=== PATIENT | female | born 1965 | race Caucasian/White ===

== ENCOUNTER 2019-08-01 11:36 | Inpatient (IN) | payer OTHER ==
--- NOTE | 2019-08-01 12:14 | ED ---
General Adult HPI - General Chief complaint: Neuro Symptoms/Deficit Stated complaint: med reaction Time Seen by Provider: 08/01/19 12:06 Source: patient, family, RN notes reviewed, old records reviewed Mode of arrival: wheelchair Limitations: no limitations - History of Present Illness Initial comments: 54-year-old female presenting for evaluation of jerky movements over the past 3 or 4 days. Patient thought this may been a medication reaction although she denies taking any new medications over the past several weeks. She is on [place], morphine, Lyrica for chronic pain issues. She denies any focal numbness or weakness. She denies fever in the past one week. She denies any chest pain or dyspnea. Denies abdominal pain. No vomiting or diarrhea. She states that she did have an episode of renal failure where she was treated on an outside hos pital. She states she's had normal urine output over the past several days. No dysuria or hematuria. - Related Data Home Medications Medication Instructions Recorded Confirmed Albuterol Inhaler [Ventolin Hfa 2 puff INHALATION RT-QID PRN 08/01/19 08/01/19 Inhaler] Aspirin EC [Ecotrin Low Dose] 81 mg PO DAILY 08/01/19 08/01/19 Atorvastatin [Lipitor] 80 mg PO HS 08/01/19 08/01/19 Baclofen [Lioresal] 10 mg PO DAILY 08/01/19 08/01/19 Carvedilol [Coreg] 12.5 mg PO BID 08/01/19 08/01/19 DULoxetine HCL [Cymbalta] 60 mg PO DAILY 08/01/19 08/01/19 Fluticasone Propion/Salmeterol 1 puff INHALATION RT-BID 08/01/19 08/01/19 [[place] 250-50 Inhub] HYDROcodone/APAP 10-325MG [[place] 1 tab PO TID PRN 08/01/19 08/01/19 10-325] Lisinopril-Hctz 20-12.5 mg 1 tab PO DAILY 08/01/19 08/01/19 [Zestoretic 20-12.5] Morphine Sulfate [Ms Contin] 30 mg PO Q12H 08/01/19 08/01/19 Pregabalin [Lyrica] 200 mg PO TID 08/01/19 08/01/19 Allergies Allergy/AdvReac Type Severity Reaction Status Date / Time UNKNOWN BLOOD PRESSURE AdvReac KIDNEYS Uncoded 08/01/19 13:00 MEDICATION SHUT DOWN Review of Systems ROS Statement: Those systems with pertinent positive or pertinent negative responses have been documented in the HPI. ROS Other: All systems not noted in ROS Statement are negative. Past Medical History Past Medical History: Cancer, Hyperlipidemia, Hypertension, Thyroid Disorder Additional Past Medical History / Comment(s): chronic back pain, skin CA History of Any Multi-Drug Resistant Organisms: None Reported Past Surgical History: Orthopedic Surgery Past Psychological History: Anxiety, Depression Smoking Status: Current every day smoker Past Alcohol Use History: None Reported Past Drug Use History: None Reported General Exam Limitations: no limitations General appearance: alert, in no apparent distress Head exam: Present: atraumatic, normocephalic Eye exam: Present: normal appearance, PERRL ENT exam: Present: normal exam Neck exam: Present: normal inspection. Absent: tenderness, meningismus Respiratory exam: Present: normal lung sounds bilaterally. Absent: respiratory distress, wheezes Cardiovascular Exam: Present: regular rate, normal rhythm GI/Abdominal exam: Present: soft. Absent: distended, tenderness, guarding Extremities exam: Present: normal inspection, normal capillary refill. Absent: pedal edema, calf tenderness Neurological exam: Present: alert, oriented X3, CN II-XII intact, motor sensory deficit (No focal neurological deficit, subtle jerking movements of the head and upper extremities.) Psychiatric exam: Present: anxious Skin exam: Present: warm, dry, intact. Absent: cyanosis, diaphoretic Course Vital Signs 08/01/19 08/01/19 11:37 13:43 Temperature 98.3 F Pulse Rate 74 71 Respiratory 18 18 Rate Blood Pressure 113/67 92/59 O2 Sat by Pulse 97 100 Oximetry - Reevaluation(s) Reevaluation #1: 08/01/19 [id number] Discussed case with covering stroke neurologist Dr. Perez, who recommends MRI with and without contrast, suspect possible brain mass versus CVA with focal seizure. He recommends aspirin and Keppra. He's had history of emergency department. The patient cannot be transferred at this time due to coronavirus pandemic. I discussed case with the admitting physician Dr. Ochoa who will accept this admission for MRI, and neurology evaluation on Saturday which is 2 days from now. Patient will be closely monitored in the meantime. I did attempt to obtain medical records the patient's implanted device prohibiting MRI in the emergency department. Attempting to find out from her family where this device was implanted some medical records can be obtained prior to MRI imaging. MRI was recommended both by stroke neurologist in the radiologist this was initially ordered however cancel awaiting implanted device details. EKG Findings - EKG Comments: EKG Findings:: EKG: normal sinus rhythm, low voltage, nonspecific T-wave abnormality in the precordial leads, rate of 75, MD interval 138, QRS duration 86, QTC 455 Medical Decision Making - Medical Decision Making 54-year-old female with generalized twitching, there does not appear to be in the lateral symptoms associated with this. Head CT shows sulci effacement on the right with no midline shift. No intracranial hemorrhage. I did attempt to order MRI however this was not able to be obtained secondary to implantable device in the patient. I discussed case with the radiologist, stroke neurologist in the admitting physician. Plan at this point will be to attempt to obtain information regarding her implanted device and obtain MRI both with and without contrast. Patient will be closely monitored on seizure precautions. She will be loaded with Keppra and given aspirin emergency department. Admitted to internal medicine at this time. - Lab Data Result diagrams: 08/01/19 12:00 08/01/19 12:00 Lab Results 08/01/19 08/01/19 08/01/19 Range/Units 12:00 12:00 12:00 WBC 10.2 (3.8-10.6) k/uL RBC 4.37 (3.80-5.40) m/uL Hgb 12.8 (11.4-16.0) gm/dL Hct 38.0 (34.0-46.0) % MCV 86.9 (80.0-100.0) fL MCH 29.3 (25.0-35.0) pg MCHC 33.7 (31.0-37.0) g/dL RDW 13.5 (11.5-15.5) % Plt Count 279 (150-450) k/uL Neutrophils % 80 % Lymphocytes % 11 % Monocytes % 5 % Eosinophils % 3 % Basophils % 0 % Neutrophils # 8.1 H (1.3-7.7) k/uL Lymphocytes # 1.1 (1.0-4.8) k/uL Monocytes # 0.5 (0-1.0) k/uL Eosinophils # 0.3 (0-0.7) k/uL Basophils # 0.0 (0-0.2) k/uL PT 9.8 (9.0-12.0) sec INR 0.9 (<1.2) APTT 25.7 (22.0-30.0) sec Sodium 135 L (137-145) mmol/L Potassium 5.1 (3.5-5.1) mmol/L Chloride 100 (98-107) mmol/L Carbon Dioxide 27 (22-30) mmol/L Anion Gap 8 mmol/L BUN 45 H (7-17) mg/dL Creatinine 1.83 H (0.52-1.04) mg/dL Est GFR (CKD-EPI)AfAm 36 (>60 ml/min/1.73 sqM) Est GFR (CKD-EPI)NonAf 31 (>60 ml/min/1.73 sqM) Glucose 121 H (74-99) mg/dL Plasma Lactic Acid [place] (0.7-2.0) mmol/L Calcium 9.1 (8.4-10.2) mg/dL Total Bilirubin 0.4 (0.2-1.3) mg/dL AST 65 H (14-36) U/L ALT 41 H (4-34) U/L Alkaline Phosphatase 98 (38-126) U/L Total Protein 7.1 (6.3-8.2) g/dL Albumin 4.3 (3.5-5.0) g/dL Urine Color Urine Appearance (Clear) Urine pH (5.0-8.0) Ur Specific [place] (1.001-1.035) Urine Protein (Negative) Urine Glucose (UA) (Negative) Urine Ketones (Negative) Urine Blood (Negative) Urine Nitrite (Negative) Urine Bilirubin (Negative) Urine Urobilinogen (<2.0) mg/dL Ur Leukocyte Esterase (Negative) Urine RBC (0-5) /hpf Urine WBC (0-5) /hpf Ur Squamous Epith Cells (0-4) /hpf Urine Bacteria (None) /hpf Hyaline Casts (0-2) /lpf Urine Mucus (None) /hpf Salicylates <1.0 mg/dL Urine Opiates Screen (NotDetected) Ur Oxycodone Screen (NotDetected) Urine Methadone Screen (NotDetected) Ur Propoxyphene Screen (NotDetected) Acetaminophen 10.6 ug/mL Ur Barbiturates Screen (NotDetected) U Tricyclic Antidepress (NotDetected) Ur Phencyclidine Scrn (NotDetected) Ur Amphetamines Screen (NotDetected) U Methamphetamines Scrn (NotDetected) U Benzodiazepines Scrn (NotDetected) Urine Cocaine Screen (NotDetected) U Marijuana (THC) Screen (NotDetected) Serum Alcohol <10 mg/dL 08/01/19 08/01/19 Range/Units 12:00 12:00 WBC (3.8-10.6) k/uL RBC (3.80-5.40) m/uL Hgb (11.4-16.0) gm/dL Hct (34.0-46.0) % MCV (80.0-100.0) fL MCH (25.0-35.0) pg MCHC (31.0-37.0) g/dL RDW (11.5-15.5) % Plt Count (150-450) k/uL Neutrophils % % Lymphocytes % % Monocytes % % Eosinophils % % Basophils % % Neutrophils # (1.3-7.7) k/uL Lymphocytes # (1.0-4.8) k/uL Monocytes # (0-1.0) k/uL Eosinophils # (0-0.7) k/uL Basophils # (0-0.2) k/uL PT (9.0-12.0) sec INR (<1.2) APTT (22.0-30.0) sec Sodium (137-145) mmol/L Potassium (3.5-5.1) mmol/L Chloride (98-107) mmol/L Carbon Dioxide (22-30) mmol/L Anion Gap mmol/L BUN (7-17) mg/dL Creatinine (0.52-1.04) mg/dL Est GFR (CKD-EPI)AfAm (>60 ml/min/1.73 sqM) Est GFR (CKD-EPI)NonAf (>60 ml/min/1.73 sqM) Glucose (74-99) mg/dL Plasma Lactic Acid [place] 0.6 L (0.7-2.0) mmol/L Calcium (8.4-10.2) mg/dL Total Bilirubin (0.2-1.3) mg/dL AST (14-36) U/L ALT (4-34) U/L Alkaline Phosphatase (38-126) U/L Total Protein (6.3-8.2) g/dL Albumin (3.5-5.0) g/dL Urine Color Light Yellow Urine Appearance Clear (Clear) Urine pH 5.0 (5.0-8.0) Ur Specific [place] 1.008 (1.001-1.035) Urine Protein Negative (Negative) Urine Glucose (UA) Negative (Negative) Urine Ketones Negative (Negative) Urine Blood Trace H (Negative) Urine Nitrite Negative (Negative) Urine Bilirubin Negative (Negative) Urine Urobilinogen <2.0 (<2.0) mg/dL Ur Leukocyte Esterase Large H (Negative) Urine RBC 3 (0-5) /hpf Urine WBC 15 H (0-5) /hpf Ur Squamous Epith Cells 3 (0-4) /hpf Urine Bacteria Rare H (None) /hpf Hyaline Casts 4 H (0-2) /lpf Urine Mucus Rare H (None) /hpf Salicylates mg/dL Urine Opiates Screen Detected H (NotDetected) Ur Oxycodone Screen Not Detected (NotDetected) Urine Methadone Screen Not Detected (NotDetected) Ur Propoxyphene Screen Not Detected (NotDetected) Acetaminophen ug/mL Ur Barbiturates Screen Not Detected (NotDetected) U Tricyclic Antidepress Not Detected (NotDetected) Ur Phencyclidine Scrn Not Detected (NotDetected) Ur Amphetamines Screen Not Detected (NotDetected) U Methamphetamines Scrn Not Detected (NotDetected) U Benzodiazepines Scrn Not Detected (NotDetected) Urine Cocaine Screen Not Detected (NotDetected) U Marijuana (THC) Screen Not Detected (NotDetected) Serum Alcohol mg/dL Disposition Clinical Impression: Intracranial swelling, New onset seizure Disposition: ADMITTED IP TO THIS [facility] Condition: Stable Is patient prescribed a controlled substance at d/c from ED?: No Referrals: Nonstaff,Physician [Primary Care Provider] - 1-2 days Decision to Admit Reason: Admit from EC Decision Date: 08/01/19 Decision Time: 13:20
[2019-08-01 12:59] LABS: ALT 41 U/L (4-34); AST 65 U/L (14-36); Acetaminophen 10.6 ug/mL; African American GFR (CKD) 36 (>60 ml/min/1.73 sqM); Albumin 4.3 g/dL (3.5-5.0); Alcohol <10 mg/dL; Alkaline Phosphatase 98 U/L (38-126); Anion Gap 8 mmol/L; Blood Urea Nitrogen 45 mg/dL (7-17); Calcium 9.1 mg/dL (8.4-10.2); Carbon Dioxide 27 mmol/L (22-30); Chloride 100 mmol/L (98-107); Glucose 121 mg/dL (74-99); Non-African American GFR(CKD) 31 (>60 ml/min/1.73 sqM); Potassium 5.1 mmol/L (3.5-5.1); Salicylate <1.0 mg/dL; Sodium 135 mmol/L (137-145); Total Bilirubin 0.4 mg/dL (0.2-1.3); Total Protein 7.1 g/dL (6.3-8.2)
[2019-08-01 13:00] LABS: Appearance,Urine Clear (Clear); Bacteria,Urine Rare /hpf; Bilirubin,Urine Negative (Negative); Blood,Urine Trace (Negative); Color,Urine Light Yellow; Glucose,Urine (UA) Negative (Negative); Hyaline Casts,Urine 4 /lpf (0-2); Ketones,Urine Negative (Negative); Leukocyte Esterase,Urine Large (Negative); Mucus,Urine Rare /hpf; Nitrite,Urine Negative (Negative); Protein,Urine Negative (Negative); RBC,Urine 3 /hpf (0-5); Specific Gravity,Urine 1.008 (1.001-1.035); Squamous Epithelial Cell,Urine 3 /hpf (0-4); Urobilinogen,Urine <2.0 mg/dL (<2.0); WBC,Urine 15 /hpf (0-5)
--- NOTE | 2019-08-01 13:00 | CT ---
EXAMINATION TYPE: CT brain wo con DATE OF EXAM: 08/01/2019 COMPARISON: NONE HISTORY: altered mental status, head injury CT DLP: 1054.4 mGycm Automated exposure control for dose reduction was used. FINDINGS: There is diffuse sulcal effacement on the right suggesting some degree of brain swelling. No definite focal lesion or midline shift is seen. I do not see evidence of intracranial blood. IMPRESSION: DIFFUSE RIGHT-SIDED SULCAL EFFACEMENT SUGGESTING SOME DEGREE OF BRAIN SWELLING. UNCERTAIN TO THE E TIOLOGY OF THIS. I SPOKE TO DR. ULLOA IN THE ER AT THE TIME OF REPORTING AND SUGGESTED IF POSSIBL E TO GET AN MR OF THE BRAIN FOR FURTHER ASSESSMENT.
[2019-08-01 13:06] LABS: INR 0.9 (<1.2); Partial Thromboplastin Time 25.7 sec (22.0-30.0); Prothrombin Time 9.8 sec (9.0-12.0)
[2019-08-01 13:10] LABS: Basophils % (A) 0 %; Eosinophils # (A) 0.3 k/uL (0-0.7); Eosinophils % (A) 3 %; HGB 12.8 gm/dL (11.4-16.0); Lymphocytes # (A) 1.1 k/uL (1.0-4.8); Lymphocytes % (A) 11 %; MCH 29.3 pg (25.0-35.0); MCHC 33.7 g/dL (31.0-37.0); MCV 86.9 fL (80.0-100.0); Monocytes # (A) 0.5 k/uL (0-1.0); Monocytes % (A) 5 %; Neutrophils # (A) 8.1 k/uL (1.3-7.7); Neutrophils % (A) 80 %; Platelet Count 279 k/uL (150-450); RBC 4.37 m/uL (3.80-5.40); RDW 13.5 % (11.5-15.5); WBC 10.2 k/uL (3.8-10.6)
[2019-08-01 13:15] LABS: Amphetamine Screen,Urine Not Detected (NotDetected); Benzodiazepines Screen,Urine Not Detected (NotDetected); Cocaine Screen,Urine Not Detected (NotDetected); Opiate Screen,Urine Detected (NotDetected); Phencyclidine Screen,Urine Not Detected (NotDetected); Urn Cannabinoid Scrn Not Detected (NotDetected)
[2019-08-01 13:16] LABS: Barbiturate Screen,Urine Not Detected (NotDetected); Methadone Screen, Urine Not Detected (NotDetected); Oxycodone Screen, Urine Not Detected (NotDetected); Tricyclic Antidepressant,Urine Not Detected (NotDetected)
[2019-08-01] MEDS ORDERED: SODIUM CHLORIDE 0.9% 500 ML 500 ML IV ONE (13:21)
[2019-08-01] MEDS: SODIUM CHLORIDE 0.9% 1,000 ML IV SCH ×2 (13:26→23:26)
[2019-08-01] MEDS ORDERED: ASPIRIN 325 MG TAB PO STA (14:08)
[2019-08-01] MEDS ORDERED: levETIRAcetam IV 1,000 MG in SALINE 1 100ML.BAG IVPB STA (14:08)
[2019-08-01] MEDS: NALOXONE 0.4 MG/ML 1 ML VIAL IV PRN ×3 (15:21→16:34)
[2019-08-01 17:16] LABS: VBG PH 7.24 (7.31-7.41)
[2019-08-01] MEDS: NALOXONE 2 MG in SODIUM CHLORIDE 0.9% 250 ML IV SCH ×2 (18:22→21:15)
--- NOTE | 2019-08-01 18:27 | XR ---
EXAMINATION TYPE: XR chest 1V portable DATE OF EXAM: 08/01/2019 COMPARISON: NONE HISTORY: Chest pain TECHNIQUE: Single view FINDINGS: There is minimal atelectasis at the lung bases. There is poor inspiration. There is no hear t failure. Costophrenic angles are fairly clear. There is neural stimulator in the lower thoracic spi ne. There are chest leads. IMPRESSION: Mild atelectasis at the lung bases. No heart failure.
[2019-08-01 19:55] LABS: Glucose,Whole Blood 100 mg/dL (75-99)
[2019-08-01] MEDS ORDERED: IPRATROPIUM-ALBUTEROL 3 ML NEB INHALATION PRN (20:02)
[2019-08-01] MEDS ORDERED: ACETAMINOPHEN TAB 325 MG TAB PO PRN (20:02)
[2019-08-01] MEDS ORDERED: NALOXONE 0.4 MG/ML 1 ML VIAL IV PRN (20:06)
[2019-08-01] MEDS ORDERED: ASPIRIN 300 MG SUPP RECTAL SCH (20:15)
--- NOTE | 2019-08-01 20:25 | P.HPIM ---
History of Present Illness H&P Date: 08/01/19 Chief Complaint: "jerky movement" 54 yo female with multiple comorbidites, presents to the ED complaining of "jerking movements" for the last few days. She has no Hx of seizures, she was concerned that this may have been a reaction to her meds, even though there has been no recent changes. She is on [place], Morphine, Baclofen, Lyrica, and possibly a morphine pump. She was awake and alert in the ED but quickly became unresponsive. responded to two doses of Narcan and was placed on a drip. [place] pH 7.24 PCO2 67, placed on Bipap. currently lethargic, difficult to arouse, answers simple questions with yes/no then falls back asleep. CT shows diffuse right sided sulcal effacement with unclear etiology. Neuro ws consulted, started on Keppra, MRI ordered but patient has a pump and unknown if safe for MRI, cannot be transferred at this time due to the COVID pandemic. SBP dropped to the 80's systolic but improved with IVF. Patient was transferred to ICU in stable condition. Review of Systems ROS unobtainable: due to mental status Past Medical History Past Medical History: Cancer, Hyperlipidemia, Hypertension, Thyroid Disorder Additional Past Medical History / Comment(s): chronic back pain, skin CA, CRF, MARYELL[place] History of Any Multi-Drug Resistant Organisms: None Reported Past Surgical History: Orthopedic Surgery Past Psychological History: Anxiety, Depression Smoking Status: Current every day smoker Past Alcohol Use History: None Reported Past Drug Use History: None Reported Medications and Allergies Home Medications Medication Instructions Recorded Confirmed Type Albuterol Inhaler [Ventolin Hfa 2 puff INHALATION RT-QID PRN 08/01/19 08/01/19 History Inhaler] Aspirin EC [Ecotrin Low Dose] 81 mg PO DAILY 08/01/19 08/01/19 History Atorvastatin [Lipitor] 80 mg PO HS 08/01/19 08/01/19 History Baclofen [Lioresal] 10 mg PO DAILY 08/01/19 08/01/19 History Carvedilol [Coreg] 12.5 mg PO BID 08/01/19 08/01/19 History DULoxetine HCL [Cymbalta] 60 mg PO DAILY 08/01/19 08/01/19 History Fluticasone Propion/Salmeterol 1 puff INHALATION RT-BID 08/01/19 08/01/19 History [[place] 250-50 Inhub] HYDROcodone/APAP 10-325MG [[place] 1 tab PO TID PRN 08/01/19 08/01/19 History 10-325] Lisinopril-Hctz 20-12.5 mg 1 tab PO DAILY 08/01/19 08/01/19 History [Zestoretic 20-12.5] Morphine Sulfate [Ms Contin] 30 mg PO Q12H 08/01/19 08/01/19 History Pregabalin [Lyrica] 200 mg PO TID 08/01/19 08/01/19 History Allergies Allergy/AdvReac Type Severity Reaction Status Date / Time UNKNOWN BLOOD PRESSURE AdvReac KIDNEYS Uncoded 08/01/19 13:00 MEDICATION SHUT DOWN Physical Exam Osteopathic Statement: *. No significant issues noted on an osteopathic structural exam other than those noted in the History and Physical/Consult. Vitals: Vital Signs Temp Pulse Resp BP Pulse Ox 08/01/19 19:04 67 12 93/48 100 08/01/19 18:50 97.7 F 64 12 101/59 100 08/01/19 18:30 69 12 111/63 08/01/19 18:22 12 08/01/19 18:20 65 12 111/63 100 08/01/19 18:15 80 12 113/62 100 08/01/19 18:10 69 12 113/62 100 08/01/19 18:00 61 7 L 85/48 100 08/01/19 17:59 64 85/40 100 08/01/19 17:43 63 18 98/60 100 08/01/19 17:30 62 12 110/57 98 08/01/19 17:15 72 11 L 137/75 98 08/01/19 17:07 144/80 100 08/01/19 17:00 87 12 148/67 98 08/01/19 16:34 12 08/01/19 16:30 76 12 92/69 98 08/01/19 16:15 78 12 117/74 98 08/01/19 16:06 97.7 F 85 12 102/53 100 08/01/19 16:00 103 H 14 127/71 98 08/01/19 15:58 99 15 127/71 98 08/01/19 15:45 75 12 117/71 98 08/01/19 15:37 96 18 117/71 98 08/01/19 15:35 99/62 98 08/01/19 15:32 60 10 L 73/42 98 08/01/19 15:30 53 L 8 L 50/23 99 08/01/19 15:22 8 L 08/01/19 15:21 10 L 08/01/19 15:15 53 L 8 L 81/37 98 08/01/19 15:00 56 L 12 124/95 98 08/01/19 14:45 60 13 124/95 97 08/01/19 14:30 73 12 95/41 98 08/01/19 14:00 72 13 92/59 97 08/01/19 11:37 98.3 F 74 18 113/67 97 Intake and Output 08/01/19 08/01/19 08/01/19 06:59 14:59 22:59 Other: Weight 83.915 kg - Constitutional General appearance: no cooperative, no no acute distress, obese - EENT Eyes: abnormal pupil, anicteric sclerae - Neck Neck: no lymphadenopathy, normal ROM, no rigidity - Respiratory Respiratory: bilateral: CTA - Cardiovascular Rhythm: regular Heart sounds: normal: S1, S2 Abnormal Heart Sounds: no systolic murmur, no diastolic murmur - Gastrointestinal General gastrointestinal: normal bowel sounds, no tenderness - Neurologic no facial asymmetry difficult to arouse, answers yes/no then falls back asleep moves all ext when awake no abnormal movements, no tremor, no seizure activity - Psychiatric Psychiatric: no A&O x's 3, no appropriate affect Results CBC & Chem 7: 08/01/19 12:00 08/01/19 12:00 Labs: Abnormal Lab Results - Last 24 Hours (Table) 08/01/19 08/01/19 08/01/19 Range/Units 12:00 12:00 12:00 Neutrophils # 8.1 H (1.3-7.7) k/uL VBG pH (7.31-7.41) VBG pCO2 (37-51) mmHg Sodium 135 L (137-145) mmol/L BUN 45 H (7-17) mg/dL Creatinine 1.83 H (0.52-1.04) mg/dL Glucose 121 H (74-99) mg/dL POC Glucose (mg/dL) (75-99) mg/dL Plasma Lactic Acid [place] 0.6 L (0.7-2.0) mmol/L AST 65 H (14-36) U/L ALT 41 H (4-34) U/L Urine Blood (Negative) Ur Leukocyte Esterase (Negative) Urine WBC (0-5) /hpf Urine Bacteria (None) /hpf Hyaline Casts (0-2) /lpf Urine Mucus (None) /hpf Urine Opiates Screen (NotDetected) 08/01/19 08/01/19 08/01/19 Range/Units 12:00 16:51 19:54 Neutrophils # (1.3-7.7) k/uL VBG pH 7.24 L (7.31-7.41) VBG pCO2 67 H (37-51) mmHg Sodium (137-145) mmol/L BUN (7-17) mg/dL Creatinine (0.52-1.04) mg/dL Glucose (74-99) mg/dL POC Glucose (mg/dL) 100 H (75-99) mg/dL Plasma Lactic Acid [place] (0.7-2.0) mmol/L AST (14-36) U/L ALT (4-34) U/L Urine Blood Trace H (Negative) Ur Leukocyte Esterase Large H (Negative) Urine WBC 15 H (0-5) /hpf Urine Bacteria Rare H (None) /hpf Hyaline Casts 4 H (0-2) /lpf Urine Mucus Rare H (None) /hpf Urine Opiates Screen Detected H (NotDetected) Assessment and Plan Plan: # Acute Hypercapnic Respiratory Failure -secondary to narcotic overdose -continue Narcan drip -continue Bipap, repeat VBG in 1 hour -hold all narcotics -admit to ICU # Acute Metabolic Encephalopathy -multi factorial: CO2 narcosis, multiple psychotropic medications/polypharmacy -continue Bipap, hold all narcotics/baclofen/benzos -possible UTI, treat empirically with Ceftriaxone -CT shows diffuse effacement of Sulci, possible due to edema. Etiology unclear. Appreciate further input from neurology. may need LP -MRI pending # Hypotension -possibly due to narcotic/polypharmacy -improving to IVF -antihypertensives on hold # TESFAYE vs CKD -Cr 1.83, baseline unknown -avoid nephrotoxins # DVT PPX
[2019-08-01 20:49] LABS: ABG Base Excess -1.7 mmol/L; ABG HCO3 25 mmol/L (21-25); ABG Oxygen Saturation 99.4 % (94-97); ABG PCO2 50 mmHg (35-45); ABG PO2 246 mmHg (83-108); ABG TCO2 26 mmol/L (19-24); Allen Test Performed? Yes
[2019-08-01] MEDS: LACTATED RINGERS 1,000 ML IV SCH (20:50)
[2019-08-01] MEDS: INSULIN ASPART (NovoLOG) 100 UNIT/ML VIAL SQ SCH (20:55)
[2019-08-01 20:56] LABS: Glucose,Whole Blood 117 mg/dL (75-99)
[2019-08-01] MEDS: PANTOPRAZOLE 40 MG/10 ML VIAL IVP SCH (21:00)
[2019-08-01] MEDS: DEXAMETHASONE SOD PHOSPHATE 4 MG/ML 1 ML VIAL IV SCH (21:01)
[2019-08-01] MEDS: ATORVASTATIN 80 MG TAB PO SCH (21:04)
--- NOTE | 2019-08-01 21:44 | US ---
EXAMINATION TYPE: US carotid duplex BILAT DATE OF EXAM: 08/01/2019 COMPARISON: NONE CLINICAL HISTORY: r/o CVA. EXAM MEASUREMENTS: RIGHT: Peak Systolic Velocity (PSV) cm/sec ----- Right CCA: 118.3 ----- Right ICA: 97.3 ----- Right ECA: 87.1 ICA/CCA ratio: 0.8 RIGHT: End Diastole cm/sec ----- Right CCA: 46.2 ----- Right ICA: 46.2 ----- Right ECA: 12.8 LEFT: Peak Systolic Velocity (PSV) cm/sec ----- Left CCA: 125.8 ----- Left ICA: 106.6 ----- Left ECA: 109.0 ICA/CCA ratio: 0.8 LEFT: End Diastole cm/sec ----- Left CCA: 51.5 ----- Left ICA: 53.2 ----- Left ECA: 16.0 VERTEBRALS (direction of flow): Right Vertebral: Antegrade Left Vertebral: Antegrade Rhythm: Normal No significant stenosis seen IMPRESSION: There is antegrade flow in the vertebral arteries. The images and measurements suggest close to 0% st enosis in both internal carotid arteries. Criteria for Assigning % of Stenosis / Diameter reduction (Estimation based on the indirect measurements of the internal carotid artery velocities (ICA PSV). 1. Normal (no stenosis)=ICA PSV < 125 cm/s: ratio < 2.0: ICA EDV<40 cm/s. 2. Less than 50% stenosis=ICA PSV < 125 cm/s: ratio < 2.0: ICA EDV<40 cm/s. 3. 50 to 69% stenosis=ICA PSV of 125 to 230 cm/s: ration 2.0 ? 4.0: ICA EDV 40-100 cm/s. 4. Greater than 70% stenosis to near occlusion= ICA PSV > 230 cm/s: ratio > 4.0: ICA EDV > 100 cm/s. 5. Near occlusion= ICA PSV velocities may be low or undetectable: variable ratio and ICA EDV. 6. Total occlusion=unable to detect flow.
[2019-08-01] MEDS: levETIRAcetam IV 1,000 MG in SALINE 1 100ML.BAG IVPB SCH (21:50)
[2019-08-01 22:44] LABS: Amorphous Sediment,Urine Rare /hpf; Appearance,Urine Cloudy (Clear); Bacteria,Urine Few /hpf; Bilirubin,Urine Negative (Negative); Blood,Urine Negative (Negative); Color,Urine Light Yellow; Glucose,Urine (UA) Negative (Negative); Hyaline Casts,Urine 2 /lpf (0-2); Ketones,Urine Negative (Negative); Leukocyte Esterase,Urine Large (Negative); Mucus,Urine Rare /hpf; Nitrite,Urine Negative (Negative); Protein,Urine Negative (Negative); RBC,Urine 1 /hpf (0-5); Specific Gravity,Urine 1.008 (1.001-1.035); Squamous Epithelial Cell,Urine <1 /hpf (0-4); Urobilinogen,Urine <2.0 mg/dL (<2.0); WBC,Urine 146 /hpf (0-5)
[2019-08-02] MEDS: DEXAMETHASONE SOD PHOSPHATE 4 MG/ML 1 ML VIAL IV SCH ×3 (00:02→12:01)
[2019-08-02 00:06] LABS: Glucose,Whole Blood 136 mg/dL (75-99)
[2019-08-02] MEDS: INSULIN ASPART (NovoLOG) 100 UNIT/ML VIAL SQ SCH ×7 (00:09→23:46)
[2019-08-02] MEDS: NALOXONE 2 MG in SODIUM CHLORIDE 0.9% 250 ML IV SCH ×7 (00:32→19:41)
[2019-08-02 04:27] LABS: Glucose,Whole Blood 126 mg/dL (75-99)
[2019-08-02 05:35] LABS: Calcium 8.7 mg/dL (8.4-10.2)
[2019-08-02 05:36] LABS: Potassium 4.9 mmol/L (3.5-5.1)
[2019-08-02] MEDS: LACTATED RINGERS 1,000 ML IV SCH ×2 (05:51→15:59)
[2019-08-02 05:52] LABS: Basophils % (A) 0 %; Eosinophils % (A) 0 %; HCT 40.6 % (34.0-46.0); Hypochromasia Slight; Lymphocytes # (A) 0.8 k/uL (1.0-4.8); Lymphocytes % (A) 13 %; MCHC 32.2 g/dL (31.0-37.0); MCV 90.2 fL (80.0-100.0); Mean Platelet Volume 8.8; Monocytes # (A) 0.2 k/uL (0-1.0); Monocytes % (A) 2 %; Neutrophils # (A) 5.3 k/uL (1.3-7.7); Neutrophils % (A) 84 %; Platelet Count 277 k/uL (150-450); RDW 13.5 % (11.5-15.5); WBC 6.3 k/uL (3.8-10.6)
--- NOTE | 2019-08-02 07:16 | XR ---
EXAMINATION TYPE: XR chest 1V portable DATE OF EXAM: 08/02/2019 HISTORY: SOB. REFERENCE: Previous study dated 08/01/2019. FINDINGS: Pain stimulator leads are seen projecting over the lower thoracic spine. Heart is mildly prominent. Lungs appear clear. There is mild blunting of the left CP angle. I could n ot exclude a small left effusion. IMPRESSION: I CANNOT EXCLUDE A SMALL LEFT EFFUSION.
[2019-08-02 07:40] LABS: ABG Base Excess -1.4 mmol/L; ABG HCO3 24 mmol/L (21-25); ABG Oxygen Saturation 99.3 % (94-97); ABG PCO2 45 mmHg (35-45); ABG PH 7.34 (7.35-7.45); ABG PO2 184 mmHg (83-108); ABG TCO2 26 mmol/L (19-24); Allen Test Performed? Yes
--- NOTE | 2019-08-02 07:43 | P.CNPUL ---
History of Present Illness Consult date: 08/01/19 History of present illness: 54-year-old female patient, who has had issues with chronic pain and the patient has a pain stimulator in addition to that she receives a combination of Keota, morphine and medical for chronic pain. She initially presented herself to our ED with jerking movements over the past few days. She saw this was a medication reaction. She denied any recent change in her medication regimen. She denies having any focal weakness. No loss of consciousness. No reported fever or chills. No shortness of breath. No headaches. No nausea. No vomiting. The initial blood work showed a normal CBC, electrolytes shows a mean of 45 with a creatinine of 1.8 and there was some limited elevation of the AST and ALT were the levels were 65 and 41 respectively, with the rest of the electrolytes were essentially being within normal limits. The UA showed 15 WBCs, 3 RBCs, trace blood and the urine drug screen was positive for opiates and the Tylenol level was 10.6 without any alcohol. This computed tomography scan of the brain showed diffuse right-sided sulcal effacement suggesting some degree of brain swelling without any definite focal lesion or midline shift. No evidence of any intracranial hemorrhage. The chest x-ray showed some limited atelectatic changes in the lung bases, otherwise no other abnormalities seen. EKG was consistent with a normal sinus rhythm. Reviewing the home medication, the patient is on MS Contin 30 mg by mouth twice a day, Keota 10/325 one tablet 3 times a day and baclofen 10 mg by mouth daily in addition to Lyrica 200 mg by mouth daily. Rest of the medication with the blood pressure where the patient takes lisinopril/hydrochlorothiazide and Coreg and the patient is on Lipitor for hyperlipidemia and she takes Wixela inhub for COPD/asthma. She also utilizes Ventolin rescue inhaler. Her initial pulse ox on 2 L of oxygen was 98% Based on this CAT scan findings, the case was discussed with the stroke neurologist, Dr. Perez , recommended MRI of the brain with and without contrast. The possibilities that was entertained were brain mass versus CVA along with focal seizures. He also recommended starting patient on aspirin and Keppra. We accepted the patient based on the fact that we're unable to transfer this patient due to coronavirus of pandemic. Unable to do the MRI at this point in time as the patient has a implanted device/nerve stimulator that may not be compatible with MRI imaging. Based on all this, the patient was supposed to get admitted to the medical floor. While in the emergency, the patient became less responsive, obtunded and diminished level of consciousness along with increased snoring. The patient was given 2 doses of Narcan .She's given Narcan and she returns normal respirations, she is awake and arousable to voice and has normalized vitals and respirations. She does report a history of sleep apnea she is placed on CPAP at night. The VBG showed a pH of 7.24 with a pCO2 of 67. Upon arrival to the ICU, the patient was lethargic and somnolentand she was a Narcan and 0.6 mg per hour continuous drip and the patient was on BiPAP at a pressure of 12/5 cm of water and FiO2 of 50%. Review of Systems ROS unobtainable: due to mental status Past Medical History Past Medical History: Cancer, Hyperlipidemia, Hypertension, Thyroid Disorder Additional Past Medical History / Comment(s): chronic back pain, skin CA, CRF, MARYELLEN History of Any Multi-Drug Resistant Organisms: None Reported Past Surgical History: Orthopedic Surgery Past Psychological History: Anxiety, Depression Smoking Status: Current every day smoker Past Alcohol Use History: None Reported Past Drug Use History: None Reported Medications and Allergies Home Medications Medication Instructions Recorded Confirmed Type Albuterol Inhaler [Ventolin Hfa 2 puff INHALATION RT-QID PRN 08/01/19 08/01/19 History Inhaler] Aspirin EC [Ecotrin Low Dose] 81 mg PO DAILY 08/01/19 08/01/19 History Atorvastatin [Lipitor] 80 mg PO HS 08/01/19 08/01/19 History Baclofen [Lioresal] 10 mg PO DAILY 08/01/19 08/01/19 History Carvedilol [Coreg] 12.5 mg PO BID 08/01/19 08/01/19 History DULoxetine HCL [Cymbalta] 60 mg PO DAILY 08/01/19 08/01/19 History Fluticasone Propion/Salmeterol 1 puff INHALATION RT-BID 08/01/19 08/01/19 History [Wixela 250-50 Inhub] HYDROcodone/APAP 10-325MG [Keota 1 tab PO TID PRN 08/01/19 08/01/19 History 10-325] Lisinopril-Hctz 20-12.5 mg 1 tab PO DAILY 08/01/19 08/01/19 History [Zestoretic 20-12.5] Morphine Sulfate [Ms Contin] 30 mg PO Q12H 08/01/19 08/01/19 History Pregabalin [Lyrica] 200 mg PO TID 08/01/19 08/01/19 History Allergies Allergy/AdvReac Type Severity Reaction Status Date / Time UNKNOWN BLOOD PRESSURE AdvReac KIDNEYS Uncoded 08/01/19 13:00 MEDICATION SHUT DOWN Physical Exam Vitals: Vital Signs Temp Pulse Resp BP Pulse Ox 08/01/19 19:04 67 12 93/48 100 08/01/19 18:50 97.7 F 64 12 101/59 100 08/01/19 18:30 69 12 111/63 08/01/19 18:22 12 08/01/19 18:20 65 12 111/63 100 08/01/19 18:15 80 12 113/62 100 08/01/19 18:10 69 12 113/62 100 08/01/19 18:00 61 7 L 85/48 100 08/01/19 17:59 64 85/40 100 08/01/19 17:43 63 18 98/60 100 08/01/19 17:30 62 12 110/57 98 08/01/19 17:15 72 11 L 137/75 98 08/01/19 17:07 144/80 100 08/01/19 17:00 87 12 148/67 98 08/01/19 16:34 12 08/01/19 16:30 76 12 92/69 98 08/01/19 16:15 78 12 117/74 98 08/01/19 16:06 97.7 F 85 12 102/53 100 08/01/19 16:00 103 H 14 127/71 98 08/01/19 15:58 99 15 127/71 98 08/01/19 15:45 75 12 117/71 98 08/01/19 15:37 96 18 117/71 98 08/01/19 15:35 99/62 98 08/01/19 15:32 60 10 L 73/42 98 08/01/19 15:30 53 L 8 L 50/23 99 08/01/19 15:22 8 L 04/04/20 15:21 10 L 08/01/19 15:15 53 L 8 L 81/37 98 08/01/19 15:00 56 L 12 124/95 98 08/01/19 14:45 60 13 124/95 97 08/01/19 14:30 73 12 95/41 98 08/01/19 14:00 72 13 92/59 97 08/01/19 11:37 98.3 F 74 18 113/67 97 Intake and Output 08/01/19 08/01/19 08/01/19 06:59 14:59 22:59 Other: Weight 83.915 kg Appearance the patient is lethargic and somnolent currently o at a pressure of 12/5 cm of water with Fio2 of 50% Head exam was generally normal. There was no scleral icterus or corneal arcus. Mucous membranes were moist. Neck was supple and without jugular venous distension, thyromegaly, or carotid bruits. Carotids were easily palpable bilaterally. There was no adenopathy. Lungs sounds are diminished bilatera diminished. There are equal and symmetrical Abdominal exam revealed normal bowel sounds. The abdomen was soft, non-tender, and without masses, organomegaly, or appreciable enlargement of the abdominal aorta. Examination of the extremities revealed easily palpable radial, femoral and pedal pulses. There was no cyanosis, clubbing or edema. Examination of the skin revealed no evidence of significant rashes, suspicious appearing nevi or other concerning lesions. Neurologically, the patient is somnolent and sleep and she is difficult to arouse. She would say yes or no and then she Will call back to sleep. The neurologic exam is nonfocal.no seizure activity has been noted. She was moving all 4 extremities I would drop to painful stimulation. negative clonus and Babinski. psych evaluation cannot be performed Results - Laboratory Findings CBC and BMP: 08/01/19 12:00 08/01/19 12:00 PT/INR, D-dimer PT 9.8 sec (9.0-12.0) 08/01/19 12:00 INR 0.9 (<1.2) 08/01/19 12:00 Abnormal lab findings: Abnormal Labs 08/01/19 08/01/19 08/01/19 12:00 12:00 12:00 Neutrophils # 8.1 H VBG pH VBG pCO2 Sodium 135 L BUN 45 H Creatinine 1.83 H Glucose 121 H Plasma Lactic Acid Darian 0.6 L AST 65 H ALT 41 H Urine Blood Ur Leukocyte Esterase Urine WBC Urine Bacteria Hyaline Casts Urine Mucus Urine Opiates Screen 08/01/19 08/01/19 12:00 16:51 Neutrophils # VBG pH 7.24 L VBG pCO2 67 H Sodium BUN Creatinine Glucose Plasma Lactic Acid Darian AST ALT Urine Blood Trace H Ur Leukocyte Esterase Large H Urine WBC 15 H Urine Bacteria Rare H Hyaline Casts 4 H Urine Mucus Rare H Urine Opiates Screen Detected H - Diagnostic Findings Chest x-ray: image reviewed Assessment and Plan Plan: 1 Acute Hypercapnic Respiratory Failure. the exact etiology is not clear. Conarcotic overdose. Consider central hypoventilation either due to CVA as the patient has significan edema involving the right cerebral hemisphere without mass effect. Rule out CVA. Rule out under brain tumor. MRI of the brain will be needed. Currently the patient on a BiPAP. Patient is off narcotics. The patient is on Narcan drip. ABGs are to follow. 2 altered mental status. Rule out CO2 narcosis with secondary altered mentation. rule out polypharmacy overdose. Rule out CVA in evolution of the patient has significant edema, unilateral, without any midline shift. 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 Cover this patient with NovoLog sliding scale coverage for blood sugar control Repeat CAT scan of the brain no contrast in a.m. 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 Carotid Dopplers in a.m. Neurology consultation Continue BiPAP therapy at a pressure of 12/5with an FiO2 of 50% and obtain a follow-up blood gases to assess hypercapnia and CO2 retention Narcan drip for the next 24 hours Keota and MS Contin and Tylenol levels are therapeutic Monitor renal function IV fluids Empiric antibiotic coverage with IV Rocephin
[2019-08-02] MEDS: SYMBICORT 80-4.5 MCG INHALER INHALATION SCH ×2 (07:56→22:37)
[2019-08-02 08:35] LABS: Glucose,Whole Blood 129 mg/dL (75-99)
--- NOTE | 2019-08-02 08:38 | CT ---
EXAMINATION TYPE: CT brain wo con DATE OF EXAM: 08/02/2019 COMPARISON: Previous study dated 08/01/2019. HISTORY: LINE COOK edema CT DLP: 1040.4 mGycm Automated exposure control for dose reduction was used. FINDINGS: Sulcal effacement on the right is not nearly as prominent as on the previous examination and is now c onsidered within normal limits. Central structures are midline. There is no evidence of hydrocephalus. No acute focal lesion, mass ef fect or midline shift is seen. I do not see evidence of intracranial blood. There is a 5 mm retention cyst or polyp involving the posterior aspect of the medial wall of the left maxillary sinus. Visualized portions of the paranasal sinuses and mastoids are otherwise clear. The bony calvarium is intact. IMPRESSION: 1. RESOLUTION OF THE PATIENT'S RIGHT-SIDED SULCAL EFFACEMENT. 2. THIS EXAMINATION IS NOW CONSIDERED WITHIN NORMAL LIMITS. 3. SMALL RETENTION CYST OR POLYP, LEFT MAXILLARY ANTRUM.
[2019-08-02] MEDS: PANTOPRAZOLE 40 MG/10 ML VIAL IVP SCH (08:49)
[2019-08-02] MEDS: ENOXAPARIN 40 MG/0.4 ML SYRINGE SQ SCH (08:49)
[2019-08-02] MEDS: levETIRAcetam IV 1,000 MG in SALINE 1 100ML.BAG IVPB SCH ×2 (08:50→20:54)
[2019-08-02] MEDS ORDERED: ASPIRIN 81 MG PO SCH (09:00)
[2019-08-02] MEDS ORDERED: ASPIRIN 300 MG SUPP RECTAL SCH (09:00)
[2019-08-02 12:07] LABS: Glucose,Whole Blood 123 mg/dL (75-99)
--- NOTE | 2019-08-02 12:29 | P.PN ---
Subjective Progress Note Date: 08/02/19 54-year-old female patient, who has had issues with chronic pain and the patient has a pain stimulator in addition to that she receives a combination of [place], morphine and medical for chronic pain. She initially presented herself to our ED with jerking movements over the past few days. She saw this was a medication reaction. She denied any recent change in her medication regimen. She denies having any focal weakness. No loss of consciousness. No reported fever or chills. No shortness of breath. No headaches. No nausea. No vomiting. The initial blood work showed a normal CBC, electrolytes shows a mean of 45 with a creatinine of 1.8 and there was some limited elevation of the AST and ALT were the levels were 65 and 41 respectively, with the rest of the electrolytes were essentially being within normal limits. The UA showed 15 WBCs, 3 RBCs, trace blood and the urine drug screen was positive for opiates and the Tylenol level was 10.6 without any alcohol. This computed tomography scan of the brain showed diffuse right-sided sulcal effacement suggesting some degree of brain swelling without any definite focal lesion or midline shift. No evidence of any intracranial hemorrhage. The chest x-ray showed some limited atelectatic changes in the lung bases, otherwise no other abnormalities seen. EKG was consistent with a normal sinus rhythm. Reviewing the home medication, the p atient is on MS Contin 30 mg by mouth twice a day, [place] 10/325 one tablet 3 times a day and baclofen 10 mg by mouth daily in addition to Lyrica 200 mg by mouth daily. Rest of the medication with the blood pressure where the patient takes lisinopril/hydrochlorothiazide and Coreg and the patient is on Lipitor for hyperlipidemia and she takes Wixela inhub for COPD/asthma. She also utilizes Ventolin rescue inhaler. Her initial pulse ox on 2 L of oxygen was 98% Based on this CAT scan findings, the case was discussed with the stroke neurologist, Dr. Perez , recommended MRI of the brain with and without contrast. The possibilities that was entertained were brain mass versus CVA along with focal seizures. He also recommended starting patient on aspirin and Keppra. We accepted the patient based on the fact that we're unable to transfer this patient due to coronavirus of pandemic. Unable to do the MRI at this point in time as the patient has a implanted device/nerve stimulator that may not be compatible with MRI imaging. Based on all this, the patient was supposed to get admitted to the medical floor. While in the emergency, the patient became less responsive, obtunded and diminished level of consciousness along with increased snoring. The patient was given 2 doses of Narcan .She's given Narcan and she returns normal respirations, she is awake and arousable to voice and has normalized vitals and respirations. She does report a history of sleep apnea she is placed on CPAP at night. The VBG showed a pH of 7.24 with a pCO2 of 67. Upon arrival to the ICU, the patient was lethargic and somnolentand she was a Narcan and 0.6 mg per hour continuous drip and the patient was on BiPAP at a pressure of 12/5 cm of water and FiO2 of 50%. On today's evaluation of 08/02/2019 and seeing the patient for a follow-up. Overnight the patient stated intensive care unit. She was on a Narcan drip and she was also on BiPAP at a pressure of 12/5 cm of water. This morning, the pa tient another blood gas that showed a pH of 7.34 with a pCO2 of 45 and pO2 of 184 and this was done and FiO2 of 50%. The patient was arousable and she was communicating and moving all 4 extremities without any limitation. No neck stiffness. No headache. No altered mentation. Based on all this, the patient was taken off the BiPAP. She was placed on nasal cannula. A repeat CAT scan of the brain was done that showed no evidence of any SENIOR ENGINEERING MANAGER edema. The patient did not have any seizure activity. May consider MRI if her Rj cannulated is friendly with our MRI machine. She remains afebrile. She remains hemodynamically stable. Creatinine is down to 1.1. EEG is to follow. The patient was empirically covered with IV Keppra. Decadron will be discontinued based on the follow-up CAT scan findings. Objective - Vital Signs Vital signs: Vital Signs Temp 98.6 F 08/02/19 08:00 Pulse 86 08/02/19 11:00 Resp 12 08/02/19 11:00 BP 111/67 08/02/19 11:00 Pulse Ox 99 08/02/19 11:00 Intake & Output 04/08/1608/02/19 08/02/19 18:59 06:59 18:59 Intake Total 2020.25 450 Output Total 1735 240 Balance 286.25 210 Weight 83.915 kg 90.1 kg Intake: IV 1000 450 Lactated Ringers 1,000 ml 1000 300 @ 100 mls/hr IV .Q10H JENNIFER Rx#:[id number] cefTRIAXone 1 gm In 50 Sodium Chloride 0.9% 50 ml @ 100 mls/hr IVPB Q24HR JENNIFER Rx#:[id number] levETIRAcetam IV 1,000 mg 100 In Saline 1 100ml.bag @ 400 mls/hr IVPB Q12HR JENNIFER Rx#:[id number] Intake, IV Titration 1021.25 Amount Naloxone 2 mg In Sodium 921.25 Chloride 0.9% 250 ml @ 0. 6 MG/HR 75 mls/hr IV . Q3H20M JENNIFER Rx#:[id number] levETIRAcetam IV 1,000 mg 100 In Saline 1 100ml.bag @ 400 mls/hr IVPB Q12HR JENNIFER Rx#:[id number] Output: Urine 1735 240 Other: Voiding Method Indwelling Catheter Indwelling Catheter - Exam Appearance the patient is lethargic and somnolent currently o at a pressure of 12/5 cm of water with Fio2 of 50%, the patient was taken off the BiPAP and the patient was placed on 2 L about 2 by nasal cannula with pulse ox of 99%. She is currently off opiates. Narcan drip will be also discontinued. Head exam was generally normal. There was no scleral icterus or corneal arcus. Mucous membranes were moist. Neck was supple and without jugular venous distension, thyromegaly, or carotid bruits. Carotids were easily palpable bilaterally. There was no adenopathy. Lungs sounds are diminished bilatera diminished. There are equal and symmetrical Abdominal exam revealed normal bowel sounds. The abdomen was soft, non-tender, and without masses, organomegaly, or appreciable enlargement of the abdominal aorta. Examination of the extremities revealed easily palpable radial, femoral and pedal pulses. There was no cyanosis, clubbing or edema. Examination of the skin revealed no evidence of significant rashes, suspicious appearing nevi or other concerning lesions. Neurologically, the patient is somnolent but awake and responsive and the following commands and answering questions appropriately. No focal neurological deficit. Pupils are equal and reactive to light. No neck stiffness. Tongue in the midline. No seizure activity has been noted. - Labs CBC & Chem 7: 08/02/19 04:34 08/02/19 04:34 Labs: Abnormal Lab Results - Last 24 Hours (Table) 08/01/19 08/01/19 08/01/19 Range/Units 12:00 12:00 12:00 Neutrophils # 8.1 H (1.3-7.7) k/uL Lymphocytes # (1.0-4.8) k/uL ABG pH (7.35-7.45) ABG pCO2 (35-45) mmHg ABG pO2 (83-108) mmHg ABG Total CO2 (19-24) mmol/L ABG O2 Saturation (94-97) % VBG pH (7.31-7.41) VBG pCO2 (37-51) mmHg Sodium 135 L (137-145) mmol/L Chloride (98-107) mmol/L Carbon Dioxide (22-30) mmol/L BUN 45 H (7-17) mg/dL Creatinine 1.83 H (0.52-1.04) mg/dL Glucose 121 H (74-99) mg/dL POC Glucose (mg/dL) (75-99) mg/dL Plasma Lactic Acid Darian 0.6 L (0.7-2.0) mmol/L AST 65 H (14-36) U/L ALT 41 H (4-34) U/L Urine Appearance (Clear) Urine Blood (Negative) Ur Leukocyte Esterase (Negative) Urine WBC (0-5) /hpf Urine WBC Clumps (None) /hpf Amorphous Sediment (None) /hpf Urine Bacteria (None) /hpf Hyaline Casts (0-2) /lpf Urine Mucus (None) /hpf Urine Opiates Screen (NotDetected) 08/01/19 08/01/19 08/01/19 Range/Units 12:00 16:51 19:54 Neutrophils # (1.3-7.7) k/uL Lymphocytes # (1.0-4.8) k/uL ABG pH (7.35-7.45) ABG pCO2 (35-45) mmHg ABG pO2 (83-108) mmHg ABG Total CO2 (19-24) mmol/L ABG O2 Saturation (94-97) % VBG pH 7.24 L (7.31-7.41) VBG pCO2 67 H (37-51) mmHg Sodium (137-145) mmol/L Chloride (98-107) mmol/L Carbon Dioxide (22-30) mmol/L BUN (7-17) mg/dL Creatinine (0.52-1.04) mg/dL Glucose (74-99) mg/dL POC Glucose (mg/dL) 100 H (75-99) mg/dL Plasma Lactic Acid Darian (0.7-2.0) mmol/L AST (14-36) U/L ALT (4-34) U/L Urine Appearance (Clear) Urine Blood Trace H (Negative) Ur Leukocyte Esterase Large H (Negative) Urine WBC 15 H (0-5) /hpf Urine WBC Clumps (None) /hpf Amorphous Sediment (None) /hpf Urine Bacteria Rare H (None) /hpf Hyaline Casts 4 H (0-2) /lpf Urine Mucus Rare H (None) /hpf Urine Opiates Screen Detected H (NotDetected) 08/01/19 08/01/19 08/01/19 Range/Units 20:48 20:55 22:19 Neutrophils # (1.3-7.7) k/uL Lymphocytes # (1.0-4.8) k/uL ABG pH 7.30 L (7.35-7.45) ABG pCO2 50 H (35-45) mmHg ABG pO2 246 H (83-108) mmHg ABG Total CO2 26 H (19-24) mmol/L ABG O2 Saturation 99.4 H (94-97) % VBG pH (7.31-7.41) VBG pCO2 (37-51) mmHg Sodium (137-145) mmol/L Chloride (98-107) mmol/L Carbon Dioxide (22-30) mmol/L BUN (7-17) mg/dL Creatinine (0.52-1.04) mg/dL Glucose (74-99) mg/dL POC Glucose (mg/dL) 117 H (75-99) mg/dL Plasma Lactic Acid Darian (0.7-2.0) mmol/L AST (14-36) U/L ALT (4-34) U/L Urine Appearance Cloudy H (Clear) Urine Blood (Negative) Ur Leukocyte Esterase Large H (Negative) Urine WBC 146 H (0-5) /hpf Urine WBC Clumps Many H (None) /hpf Amorphous Sediment Rare H (None) /hpf Urine Bacteria Few H (None) /hpf Hyaline Casts (0-2) /lpf Urine Mucus Rare H (None) /hpf Urine Opiates Screen (NotDetected) 08/02/19 08/02/19 08/02/19 Range/Units 00:05 04:25 04:34 Neutrophils # (1.3-7.7) k/uL Lymphocytes # 0.8 L (1.0-4.8) k/uL ABG pH (7.35-7.45) ABG pCO2 (35-45) mmHg ABG pO2 (83-108) mmHg ABG Total CO2 (19-24) mmol/L ABG O2 Saturation (94-97) % VBG pH (7.31-7.41) VBG pCO2 (37-51) mmHg Sodium (137-145) mmol/L Chloride (98-107) mmol/L Carbon Dioxide (22-30) mmol/L BUN (7-17) mg/dL Creatinine (0.52-1.04) mg/dL Glucose (74-99) mg/dL POC Glucose (mg/dL) 136 H 126 H (75-99) mg/dL Plasma Lactic Acid Darian (0.7-2.0) mmol/L AST (14-36) U/L ALT (4-34) U/L Urine Appearance (Clear) Urine Blood (Negative) Ur Leukocyte Esterase (Negative) Urine WBC (0-5) /hpf Urine WBC Clumps (None) /hpf Amorphous Sediment (None) /hpf Urine Bacteria (None) /hpf Hyaline Casts (0-2) /lpf Urine Mucus (None) /hpf Urine Opiates Screen (NotDetected) 08/02/19 08/02/19 08/02/19 Range/Units 04:34 07:38 08:33 Neutrophils # (1.3-7.7) k/uL Lymphocytes # (1.0-4.8) k/uL ABG pH 7.34 L (7.35-7.45) ABG pCO2 (35-45) mmHg ABG pO2 184 H (83-108) mmHg ABG Total CO2 26 H (19-24) mmol/L ABG O2 Saturation 99.3 H (94-97) % VBG pH (7.31-7.41) VBG pCO2 (37-51) mmHg Sodium (137-145) mmol/L Chloride 110 H (98-107) mmol/L Carbon Dioxide 21 L (22-30) mmol/L BUN 33 H (7-17) mg/dL Creatinine 1.15 H (0.52-1.04) mg/dL Glucose 143 H (74-99) mg/dL POC Glucose (mg/dL) 129 H (75-99) mg/dL Plasma Lactic Acid Darian (0.7-2.0) mmol/L AST (14-36) U/L ALT (4-34) U/L Urine Appearance (Clear) Urine Blood (Negative) Ur Leukocyte Esterase (Negative) Urine WBC (0-5) /hpf Urine WBC Clumps (None) /hpf Amorphous Sediment (None) /hpf Urine Bacteria (None) /hpf Hyaline Casts (0-2) /lpf Urine Mucus (None) /hpf Urine Opiates Screen (NotDetected) 08/02/19 Range/Units 12:05 Neutrophils # (1.3-7.7) k/uL Lymphocytes # (1.0-4.8) k/uL ABG pH (7.35-7.45) ABG pCO2 (35-45) mmHg ABG pO2 (83-108) mmHg ABG Total CO2 (19-24) mmol/L ABG O2 Saturation (94-97) % VBG pH (7.31-7.41) VBG pCO2 (37-51) mmHg Sodium (137-145) mmol/L Chloride (98-107) mmol/L Carbon Dioxide (22-30) mmol/L BUN (7-17) mg/dL Creatinine (0.52-1.04) mg/dL Glucose (74-99) mg/dL POC Glucose (mg/dL) 123 H (75-99) mg/dL Plasma Lactic Acid Darian (0.7-2.0) mmol/L AST (14-36) U/L ALT (4-34) U/L Urine Appearance (Clear) Urine Blood (Negative) Ur Leukocyte Esterase (Negative) Urine WBC (0-5) /hpf Urine WBC Clumps (None) /hpf Amorphous Sediment (None) /hpf Urine Bacteria (None) /hpf Hyaline Casts (0-2) /lpf Urine Mucus (None) /hpf Urine Opiates Screen (NotDetected) Microbiology - Last 24 Hours (Table) 08/01/19 12:30 Urine Culture - Preliminary Urine,Voided Assessment and Plan Plan: 1 Acute Hypercapnic Respiratory Failure. the exact etiology is not clear. Rule out narcotic overdose. Consider central hypoventilation either due to CVA as the patient has significan edema involving the right cerebral hemisphere without mass effect. Rule out CVA. Rule out under brain tumor. MRI of the brain will be needed. Currently the patient on a BiPAP. Patient is off narcotics. The patient is on Narcan drip. ABGs are to follow. On 08/02/2019, the patient was BiPAP throughout the night and the patient was given Narcan drip. Follow-up blood gases has improved. The patient will be taken off the Narcan drip. The patient was also taken off the BiPAP and c urrently is on 2 L of oxygen by nasal cannula. MS Contin and has been discontinued. Repeat CAT scan of the brain showed resolution of the previously described SENIOR ENGINEERING MANAGER edema. No seizure activity has been noted. 2 altered mental status. Rule out CO2 narcosis with secondary altered mentation. rule out polypharmacy overdose. Rule out postictal state following a seizure. Less likely to be related to any CVA. 3 abnormal jerking movement at time of admission, consider generalized seizure activity, rule out postictal depression with seizure activity, currently on Keppra 4 Hypotension, improving with IV fluids 5 chronic back pain and the patient has pain stimulator 6 chronic kidney disease, stage III, creatinine improved 7 chronic anxiety/depression 8 hypertension 9 hyperlipidemia 10 COPD/asthma Plan Switch this patient oral aspirin 81 mg by mouth daily Continue IV Keppra Discontinue Decadron The follow-up CAT scan of the brain was noted EEG is to follow in a.m. Doppler of the carotids were negative Discontinue the Narcan drip Discontinue BiPAP and the patient is about 2 by nasal cannula Renal function is improving Neurology consultation We'll continue to follow Empiric antibiotic coverage with IV Rocephin
[2019-08-02 15:44] LABS: Glucose,Whole Blood 150 mg/dL (75-99)
--- NOTE | 2019-08-02 16:17 | P.PN ---
Subjective Progress Note Date: 08/02/19 Patient was admitted to the ICU yesterday with hypercapnic respiratory failure on Bipap, also placed on Narcan drip for narcotic overdose. Bipap has been removed, currently on 2 L NC, Narcan drip discontinued. patient is more awake and interactive today. She is alert and oriented to person and place only, but she is still confused and slow to respond at times. Denies any dyspnea, no cough, no chest pain no fevers or chills. Apparently, several family members were sick with fevers and URI symptoms and she is being tested for COVID-19. Objective - Vital Signs Vital signs: Vital Signs Temp 99.1 F 08/02/19 12:00 Pulse 86 08/02/19 15:00 Resp 16 08/02/19 15:00 BP 112/62 08/02/19 15:00 Pulse Ox 98 08/02/19 15:00 Intake & Output 08/01/19 08/02/19 08/02/19 18:59 06:59 18:59 Intake Total 2021.25 970 Output Total 1735 520 Balance 286.25 450 Weight 83.915 kg 90.1 kg 90.1 kg Intake: IV 1000 970 Lactated Ringers 1,000 ml 1000 420 @ 40 mls/hr IV .Q24H JENN[facility]ER Rx#:[id number] Sodium Chloride 0.9% 1, 400 000 ml @ 100 mls/hr IV . Q10H JENNIFER Rx#:[id number] cefTRIAXone 1 gm In 50 Sodium Chloride 0.9% 50 ml @ 100 mls/hr IVPB Q24HR JENN[facility]ER Rx#:[id number] levETIRAcetam IV 1,000 mg 100 In Saline 1 100ml.bag @ 400 mls/hr IVPB Q12HR JENN[facility]ER Rx#:[id number] Intake, IV Titration 1021.25 Amount Naloxone 2 mg In Sodium 921.25 Chloride 0.9% 250 ml @ 0. 6 MG/HR 75 mls/hr IV . Q3H20M JENNIFER Rx#:[id number] levETIRAcetam IV 1,000 mg 100 In Saline 1 100ml.bag @ 400 mls/hr IVPB Q12HR JENNIFER Rx#:[id number] Output: Urine 1735 520 Other: Voiding Method Indwelling Catheter Indwelling Catheter - Constitutional General appearance: Present: average body habitus, cooperative, no acute distress - EENT EENT Comment(s): pupils dilated but equal and reactive Eyes: Present: EOMI. Absent: scleral icterus - Neck Neck: Present: normal ROM. Absent: lymphadenopathy - Respiratory Respiratory: bilateral: diminished, negative: rales, wheezing, prolonged expiration - Cardiovascular Rhythm: regular Heart sounds: normal: S1, S2 Abnormal Heart Sounds: Absent: systolic murmur, diastolic murmur - Gastrointestinal General gastrointestinal: Present: normal bowel sounds. Absent: tenderness - Integumentary Integumentary: Absent: cyanotic, jaundiced - Neurologic Neurologic: Present: CNII-XII intact. Absent: focal deficits - Musculoskeletal Musculoskeletal: Present: generalized weakness - Allied health notes Allied health notes reviewed: nursing - Labs CBC & Chem 7: 08/02/19 04:34 08/02/19 04:34 Labs: Abnormal Lab Results - Last 24 Hours (Table) 08/01/19 08/01/19 08/01/19 Range/Units 16:51 19:54 20:48 Lymphocytes # (1.0-4.8) k/uL ABG pH 7.30 L (7.35-7.45) ABG pCO2 50 H (35-45) mmHg ABG pO2 246 H (83-108) mmHg ABG Total CO2 26 H (19-24) mmol/L ABG O2 Saturation 99.4 H (94-97) % VBG pH 7.24 L (7.31-7.41) VBG pCO2 67 H (37-51) mmHg Chloride (98-107) mmol/L Carbon Dioxide (22-30) mmol/L BUN (7-17) mg/dL Creatinine (0.52-1.04) mg/dL Glucose (74-99) mg/dL POC Glucose (mg/dL) 100 H (75-99) mg/dL Urine Appearance (Clear) Ur Leukocyte Esterase (Negative) Urine WBC (0-5) /hpf Urine WBC Clumps (None) /hpf Amorphous Sediment (None) /hpf Urine Bacteria (None) /hpf Urine Mucus (None) /hpf 08/01/19 08/01/19 08/02/19 Range/Units 20:55 22:19 00:05 Lymphocytes # (1.0-4.8) k/uL ABG pH (7.35-7.45) ABG pCO2 (35-45) mmHg ABG pO2 (83-108) mmHg ABG Total CO2 (19-24) mmol/L ABG O2 Saturation (94-97) % VBG pH (7.31-7.41) VBG pCO2 (37-51) mmHg Chloride (98-107) mmol/L Carbon Dioxide (22-30) mmol/L BUN (7-17) mg/dL Creatinine (0.52-1.04) mg/dL Glucose (74-99) mg/dL POC Glucose (mg/dL) 117 H 136 H (75-99) mg/dL Urine Appearance Cloudy H (Clear) Ur Leukocyte Esterase Large H (Negative) Urine WBC 146 H (0-5) /hpf Urine WBC Clumps Many H (None) /hpf Amorphous Sediment Rare H (None) /hpf Urine Bacteria Few H (None) /hpf Urine Mucus Rare H (None) /hpf 08/02/19 08/02/19 08/02/19 Range/Units 04:25 04:34 04:34 Lymphocytes # 0.8 L (1.0-4.8) k/uL ABG pH (7.35-7.45) ABG pCO2 (35-45) mmHg ABG pO2 (83-108) mmHg ABG Total CO2 (19-24) mmol/L ABG O2 Saturation (94-97) % VBG pH (7.31-7.41) VBG pCO2 (37-51) mmHg Chloride 110 H (98-107) mmol/L Carbon Dioxide 21 L (22-30) mmol/L BUN 33 H (7-17) mg/dL Creatinine 1.15 H (0.52-1.04) mg/dL Glucose 143 H (74-99) mg/dL POC Glucose (mg/dL) 126 H (75-99) mg/dL Urine Appearance (Clear) Ur Leukocyte Esterase (Negative) Urine WBC (0-5) /hpf Urine WBC Clumps (None) /hpf Amorphous Sediment (None) /hpf Urine Bacteria (None) /hpf Urine Mucus (None) /hpf 08/02/19 08/02/19 08/02/19 Range/Units 07:38 08:33 12:05 Lymphocytes # (1.0-4.8) k/uL ABG pH 7.34 L (7.35-7.45) ABG pCO2 (35-45) mmHg ABG pO2 184 H (83-108) mmHg ABG Total CO2 26 H (19-24) mmol/L ABG O2 Saturation 99.3 H (94-97) % VBG pH (7.31-7.41) VBG pCO2 (37-51) mmHg Chloride (98-107) mmol/L Carbon Dioxide (22-30) mmol/L BUN (7-17) mg/dL Creatinine (0.52-1.04) mg/dL Glucose (74-99) mg/dL POC Glucose (mg/dL) 129 H 123 H (75-99) mg/dL Urine Appearance (Clear) Ur Leukocyte Esterase (Negative) Urine WBC (0-5) /hpf Urine WBC Clumps (None) /hpf Amorphous Sediment (None) /hpf Urine Bacteria (None) /hpf Urine Mucus (None) /hpf 08/02/19 Range/Units 15:43 Lymphocytes # (1.0-4.8) k/uL ABG pH (7.35-7.45) ABG pCO2 (35-45) mmHg ABG pO2 (83-108) mmHg ABG Total CO2 (19-24) mmol/L ABG O2 Saturation (94-97) % VBG pH (7.31-7.41) VBG pCO2 (37-51) mmHg Chloride (98-107) mmol/L Carbon Dioxide (22-30) mmol/L BUN (7-17) mg/dL Creatinine (0.52-1.04) mg/dL Glucose (74-99) mg/dL POC Glucose (mg/dL) 150 H (75-99) mg/dL Urine Appearance (Clear) Ur Leukocyte Esterase (Negative) Urine WBC (0-5) /hpf Urine WBC Clumps (None) /hpf Amorphous Sediment (None) /hpf Urine Bacteria (None) /hpf Urine Mucus (None) /hpf Microbiology - Last 24 Hours (Table) 08/01/19 12:30 Urine Culture - Preliminary Urine,Voided - Imaging and Cardiology Chest x-ray: image reviewed CT Scan - head: report reviewed Assessment and Plan Plan: # Acute Hypercapnic Respiratory Failure -improving. Bipap discontinued -secondary to narcotic overdose -Narcan drip discontinued # Acute Metabolic Encephalopathy -improving, but not back to baseline -multi factorial: CO2 narcosis, multiple psychotropic medications/polypharmacy -hold all narcotics/baclofen/benzos -possible UTI, treat empirically with Ceftriaxone -repeat CT of the head today shows resolution of sulci effacement as was evident yesterday. Decadron discontinued -questionable seizure like activity on arrival. Continue Keppra for now, awaiting neurology consult # Hypotension -resolved -possibly due to narcotic/polypharmacy -antihypertensives on hold # TESFAYE vs CKD -improving -Cr 1.1 down from 1.83, baseline unknown -avoid nephrotoxins # COVID-19 -rule out, test pending -several family members have been reported to be ill with fevers and URI s ymptoms -maintain droplet and contact precautions for now # Diet regular diet # DVT PPX
[2019-08-02 20:26] LABS: Glucose,Whole Blood 113 mg/dL (75-99)
[2019-08-02] MEDS: ATORVASTATIN 80 MG TAB PO SCH (20:53)
--- NOTE | 2019-08-02 20:57 | EEG ---
ELECTROENCEPHALOGRAM REPORT PROCEDURE DATE: 08/02/2019. ELECTROENCEPHALOGRAM (EEG) REPORT: TECHNIQUE: A routine 18 channel EEG was performed with video using the 10/20 international electrode placement system. HISTORY: New onset seizure. Other medical history includes hypertension, hyperlipidemia. Patient presented to the emergency department complaining of jerking movements for the past few days. CURRENT MEDICATIONS: Protonix, Keppra, Narcan, insulin, Lovenox, Decadron. STUDY DURATION: 31 minutes. FINDINGS: BACKGROUND: The background activity consisted of unsustained 6-7 hertz rhythmic waveforms with intermixed delta range slowing, please see section on abnormalities below. ACTIVATION: Hyperventilation: Not performed. Photic stimulation: No driving seen. Sleep: Drowsy. ABNORMALITIES: 1. During the periods with the theta range background, 6-7 hertz mentioned above over the more anterior regions, diffuse 4-6 hertz theta range slowing was seen. 2. In areas with the background frequencies were slower, in the delta range, diffuse frontally predominant 2-3 hertz delta range slowing was seen. IMPRESSION: Abnormal EEG. This EEG alternated between diffuse theta range slowing and runs of frontally predominant delta range slowing. These findings are not epileptiform in nature. These findings indicate moderate diffuse cerebral dysfunction which may in part be due to medication effect. No seizures were recorded. No epileptiform activity was present. MMODL / IJN: [id number] /
[2019-08-02 23:44] LABS: Glucose,Whole Blood 142 mg/dL (75-99)
[2019-08-03 03:50] LABS: Glucose,Whole Blood 119 mg/dL (75-99)
[2019-08-03] MEDS: INSULIN ASPART (NovoLOG) 100 UNIT/ML VIAL SQ SCH ×4 (03:52→20:52)
[2019-08-03 04:56] LABS: Basophils % (A) 0 %; Eosinophils % (A) 0 %; HGB 11.3 gm/dL (11.4-16.0); Hypochromasia Slight; Lymphocytes # (A) 1.4 k/uL (1.0-4.8); Lymphocytes % (A) 13 %; MCH 28.2 pg (25.0-35.0); MCHC 31.5 g/dL (31.0-37.0); MCV 89.7 fL (80.0-100.0); Mean Platelet Volume 8.4; Monocytes # (A) 0.5 k/uL (0-1.0); Monocytes % (A) 5 %; Neutrophils # (A) 8.8 k/uL (1.3-7.7); Neutrophils % (A) 81 %; Platelet Count 292 k/uL (150-450); RBC 4.01 m/uL (3.80-5.40); RDW 13.8 % (11.5-15.5); WBC 10.9 k/uL (3.8-10.6)
[2019-08-03 05:15] LABS: Albumin 3.4 g/dL (3.5-5.0); C Reactive Protein 5.9 mg/L (<10.0); Calcium 8.9 mg/dL (8.4-10.2); Total Bilirubin 0.6 mg/dL (0.2-1.3); Total Protein 6.1 g/dL (6.3-8.2)
[2019-08-03 05:31] LABS: Potassium 4.6 mmol/L (3.5-5.1)
--- NOTE | 2019-08-03 07:44 | XR ---
EXAMINATION TYPE: XR chest 1V portable DATE OF EXAM: 08/03/2019 COMPARISON: 08/02/2019 HISTORY: Shortness of breath TECHNIQUE: Single frontal view of the chest is obtained. FINDINGS: Overall improved aeration of the lungs. There is no focal air space opacity, pleural effus ion, or pneumothorax seen. The cardiac silhouette size is within normal limits. There is a thoracic nerve root stimulator noted. The osseous structures are intact. Calcific tendinosis is seen at the i nsertion of the rotator cuff tendons bilaterally. IMPRESSION: Improved aeration of the lungs with resolved right basilar atelectasis. No acute cardiop ulmonary process.
[2019-08-03] MEDS: PANTOPRAZOLE 40 MG/10 ML VIAL IVP SCH (08:32)
[2019-08-03] MEDS: ASPIRIN 81 MG PO SCH (08:32)
[2019-08-03] MEDS: ENOXAPARIN 40 MG/0.4 ML SYRINGE SQ SCH (08:32)
[2019-08-03] MEDS: levETIRAcetam IV 1,000 MG in SALINE 1 100ML.BAG IVPB SCH ×2 (08:32→21:13)
[2019-08-03] MEDS: SYMBICORT 80-4.5 MCG INHALER INHALATION SCH ×2 (09:27→19:18)
[2019-08-03 11:41] LABS: Glucose,Whole Blood 90 mg/dL (75-99)
--- NOTE | 2019-08-03 12:12 | P.PN ---
Subjective Progress Note Date: 08/03/19 Principal diagnosis: Altered mental status, acute metabolic encephalopathy, acute hypercapnic respiratory failure and CO2 narcosis. 54-year-old female patient, who has had issues with chronic pain and the patient has a pain stimulator in addition to that she receives a combination of [place], morphine and medical for chronic pain. She initially presented herself to our ED with jerking movements over the past few days. She saw this was a medication reaction. She denied any recent change in her medication regimen. She denies having any focal weakness. No loss of consciousness. No reported fever or chills. No shortness of breath. No headaches. No nausea. No vomiting. The initial blood work showed a normal CBC, electrolytes shows a mean of 45 with a creatinine of 1.8 and there was some limited elevation of the AST and ALT were the levels were 65 and 41 respectively, with the rest of the electrolytes were essentially being within normal limits. The UA showed 15 WBCs, 3 RBCs, trace blood and the urine drug screen was positive for opiates and the Tylenol level was 10.6 without any alcohol. This computed tomography scan of the brain showed diffuse right-sided sulcal effacement suggesting some degree of brain swelling without any definite focal lesion or midline shift. No evidence of any intracranial hemorrhage. The chest x-ray showed some limited atelectatic changes in the lung bases, otherwise no other abnormalities seen. EKG was consistent with a normal sinus rhythm. Reviewing the home medication, the patient is on MS Contin 30 mg by mouth twice a day, [place] 10/325 one tablet 3 times a day and baclofen 10 mg by mouth daily in addition to Lyrica 200 mg by mouth daily. Rest of the medication with the blood pressure where the patient takes lisinopril/hydrochlorothiazide and Coreg and the patient is on Lipitor for hyperlipidemia and she takes Wixela inhub for COPD/asthma. She also utilizes Ventolin rescue inhaler. Her initial pulse ox on 2 L of oxygen was 98% Based on this CAT scan findings, the case was discussed with the stroke neuro logist, Dr. Perez , recommended MRI of the brain with and without contrast. The possibilities that was entertained were brain mass versus CVA along with focal seizures. He also recommended starting patient on aspirin and Keppra. We accepted the patient based on the fact that we're unable to transfer this patient due to coronavirus of pandemic. Unable to do the MRI at this point in time as the patient has a implanted device/nerve stimulator that may not be compatible with MRI imaging. Based on all this, the patient was supposed to get admitted to the medical floor. While in the emergency, the patient became less responsive, obtunded and diminished level of consciousness along with increased snoring. The patient was given 2 doses of Narcan .She's given Narcan and she returns normal respirations, she is awake and arousable to voice and has normalized vitals and respirations. She does report a history of sleep apnea she is placed on CPAP at night. The VBG showed a pH of 7.24 with a pCO2 of 67. Upon arrival to the ICU, the patient was lethargic and somnolentand she was a Narcan and 0.6 mg per hour continuous drip and the patient was on BiPAP at a pressure of 12/5 cm of water and FiO2 of 50%. Reevaluated today on 08/03/19, patient remains in the ICU, she is very awake, as ymptomatic, denies any cough wheezing or shortness of breath. Patient is on room air, and her O2 saturation is 94%. Chest x-ray showed mostly bibasilar atelectasis. Patient is in sinus rhythm, hemodynamically stable, respiratory rate is 14. Temp is 98.6. Electrolytes are normal renal profile is basically normal CBC is normal LDH is elevated at 929 C-reactive protein is 5.9 and AST is 45. Otherwise the rest of the labs are basically unremarkable. Considering her diarrhea, patient had a C. difficile screening done, and it came back negative. Covid 19 testing is pending. Objective - Vital Signs Vital signs: Vital Signs Temp 98.6 F 08/03/19 08:00 Pulse 98 08/03/19 08:00 Resp 15 08/03/19 08:00 BP 142/72 08/03/19 08:00 Pulse Ox 94 L 08/03/19 08:00 Intake & Output 08/02/19 08/03/19 08/03/19 18:59 06:59 18:59 Intake Total 1090 780 180 Output Total 645 705 330 Balance 445 75 -150 Weight 90.1 kg 86.5 kg Intake: IV 1090 580 180 Lactated Ringers 1,000 ml 540 480 80 @ 40 mls/hr IV .Q24H JENN[facility]ER Rx#:[id number] Sodium Chloride 0.9% 1, 400 000 ml @ 100 mls/hr IV . Q10H JENNIFER Rx#:[id number] cefTRIAXone 1 gm In 50 Sodium Chloride 0.9% 50 ml @ 100 mls/hr IVPB Q24HR JENN[facility]ER Rx#:[id number] levETIRAcetam IV 1,000 mg 100 100 100 In Saline 1 100ml.bag @ 400 mls/hr IVPB Q12HR JENNIFER Rx#:[id number] Oral 200 Output: Urine 645 705 330 Other: Voiding Method Indwelling Catheter Indwelling Catheter Indwelling Catheter # Bowel Movements 1 3 - Exam Physical Exam: Revealed a 54-year-old female in no distress. On room air. Head: Atraumatic, normocephalic. HEENT:[Neck is supple.] [No neck masses.] [No thyromegaly.] [No JVD.] Chest: [Clear throughout, no crackles, no rhonchi, no wheezes.] Cardiac Exam: [Normal S1 and S2, no S3 gallop, no murmur.] Abdomen: [Soft, nontender, no megaly, no rebound, no guarding, normal bowel so unds.] Extremities: [No clubbing, no edema, no cyanosis.] Neurological Exam: [No focal neurologic deficit.] Alert and oriented 3. Psychiatric: Normal mood, affect and normal mental status examination. Skin: No rashes. Musculoskeletal: No deformities, and no limitation in range of motion. - Labs CBC & Chem 7: 08/03/19 04:46 08/03/19 04:46 Labs: Abnormal Lab Results - Last 24 Hours (Table) 08/02/19 08/02/19 08/02/19 Range/Units 12:05 15:43 20:24 WBC (3.8-10.6) k/uL Hgb (11.4-16.0) gm/dL Neutrophils # (1.3-7.7) k/uL Chloride (98-107) mmol/L BUN (7-17) mg/dL Glucose (74-99) mg/dL POC Glucose (mg/dL) 123 H 150 H 113 H (75-99) mg/dL AST (14-36) U/L Lactate Dehydrogenase (313-618) U/L Creatine Kinase (30-135) U/L Total Protein (6.3-8.2) g/dL Albumin (3.5-5.0) g/dL 08/02/19 08/03/19 08/03/19 Range/Units 23:42 03:48 04:46 WBC 10.9 H (3.8-10.6) k/uL Hgb 11.3 L (11.4-16.0) gm/dL Neutrophils # 8.8 H (1.3-7.7) k/uL Chloride (98-107) mmol/L BUN (7-17) mg/dL Glucose (74-99) mg/dL POC Glucose (mg/dL) 142 H 119 H (75-99) mg/dL AST (14-36) U/L Lactate Dehydrogenase (313-618) U/L Creatine Kinase (30-135) U/L Total Protein (6.3-8.2) g/dL Albumin (3.5-5.0) g/dL 08/03/19 Range/Units 04:46 WBC (3.8-10.6) k/uL Hgb (11.4-16.0) gm/dL Neutrophils # (1.3-7.7) k/uL Chloride 108 H (98-107) mmol/L BUN 35 H (7-17) mg/dL Glucose 112 H (74-99) mg/dL POC Glucose (mg/dL) (75-99) mg/dL AST 45 H (14-36) U/L Lactate Dehydrogenase 929 H (313-618) U/L Creatine Kinase 232 H (30-135) U/L Total Protein 6.1 L (6.3-8.2) g/dL Albumin 3.4 L (3.5-5.0) g/dL Microbiology - Last 24 Hours (Table) 08/01/19 18:15 Blood Culture - Preliminary Blood No Growth after 24 hours 08/01/19 12:30 Urine Culture - Final Urine,Voided Assessment and Plan Assessment: Impression: Acute hypercapnic respiratory failure, resolved. Patient is presently on room air, off BiPAP, off Narcan drip, Acute metabolic encephalopathy/CO2 narcosis. Chronic kidney disease stage III Chronic anxiety/depression History of underlying COPD, presently asymptomatic and stable. History of benign essential hypertension History of dyslipidemia History of chronic back pain, patient has a pain stimulator. Hypotension on presentation, resolved, mostly with IV fluids, exact etiology of her hypotension is not clear. Could be hypovolemic in nature. Recommendation: Chest x-ray showed improved aeration of lungs bilaterally with significant imp rovement in the right basilar atelectasis. CT brain showed resolution of previous abnormality/right-sided sulcal effacement. Otherwise her CT of the brain is negative. Carotid Doppler has been negative. EEG showed no evidence of epileptiform focus. However it did show moderate diffuse cerebral dysfunction, consistent with metabolic encephalopathy. Continue present treatment plan, Continue empiric antibiotics coverage, Neurology is addressing her mental status and her presentation. covid 19 testing is pending. Considering the improvement in her overall status, we will arrange for the patient be transferred out of the ICU to a regular medical floor, and we'll continue to follow. Consider discharge planning in the next 24-48 hours depending on her overall status in the next couple of days. Time with Patient: Less than 30
[2019-08-03 12:37] LABS: Ferritin 138.5 ng/mL (10.0-291.0)
--- NOTE | 2019-08-03 16:37 | P.PN ---
Subjective Progress Note Date: 08/03/19 Principal diagnosis: Altered mental status Patient was seen and examined. No acute events overnight. Patient reports loose stool, states that this happens frequently when she does not take her pain medication. Patient requesting to restart pain medications. Patient complains of some fogginess. She denies any chest pain, shortness of breath or palpitations. No nausea or vomiting. No fever or chills. Objective - Vital Signs Vital signs: Vital Signs Temp 99.0 F 08/03/19 12:00 Pulse 70 08/03/19 12:00 Resp 12 08/03/19 12:00 BP 130/73 08/03/19 12:00 Pulse Ox 96 08/03/19 12:00 Intake & Output 08/02/19 08/03/19 08/03/19 18:59 06:59 18:59 Intake Total 1090 780 680 Output Total 645 705 630 Balance 445 75 50 Weight 90.1 kg 86.5 kg Intake: IV 1090 580 380 Lactated Ringers 1,000 ml 540 480 280 @ 40 mls/hr IV .Q24H [facility] Rx#:[id number] Sodium Chloride 0.9% 1, 400 000 ml @ 100 mls/hr IV . Q10H [facility]ENN[facility]ER Rx#:[id number] cefTRIAXone 1 gm In 50 Sodium Chloride 0.9% 50 ml @ 100 mls/hr IVPB Q24HR [facility]ENN[facility] Rx#:[id number] levETIRAcetam IV 1,000 mg 100 100 100 In Saline 1 100ml.bag @ 400 mls/hr IVPB Q12HR JENN[facility] Rx#:[id number] Oral 200 300 Output: Urine 645 705 630 Other: Voiding Method Indwelling Catheter Indwelling Catheter Indwelling Catheter # Bowel Movements 1 1 - Exam General: [non toxic], [no distress], [appears at stated age] Derm: [warm], [dry] Head: [atraumatic], [normocephalic], [symmetric] Eyes: [EOMI], [no lid lag], [anicteric sclera] Mouth: [no lip lesion], [mucus membranes moist] Cardiovascular: [S1S2 reg], [no murmur], [positive DP pulse bilateral], Lungs: [CTA bilateral], [no rhonchi, no rales] , [no accessory muscle use] Abdominal: [soft], [ nontender to palpation], [no guarding], [no appreciable organomegaly] Ext: [no gross muscle atrophy], [no edema], [no contractures] Neuro: [no focal neuro deficits] Psych: [Alert], [oriented], [appropriate affect] - Labs CBC & Chem 7: 08/03/19 04:46 08/03/19 04:46 Labs: Abnormal Lab Results - Last 24 Hours (Table) 08/02/19 08/02/19 08/03/19 Range/Units 20:24 23:42 03:48 WBC (3.8-10.6) k/uL Hgb (11.4-16.0) gm/dL Neutrophils # (1.3-7.7) k/uL Chloride (98-107) mmol/L BUN (7-17) mg/dL Glucose (74-99) mg/dL POC Glucose (mg/dL) 113 H 142 H 119 H (75-99) mg/dL AST (14-36) U/L Lactate Dehydrogenase (313-618) U/L Creatine Kinase (30-135) U/L Total Protein (6.3-8.2) g/dL Albumin (3.5-5.0) g/dL 08/03/19 08/03/19 Range/Units 04:46 04:46 WBC 10.9 H (3.8-10.6) k/uL Hgb 11.3 L (11.4-16.0) gm/dL Neutrophils # 8.8 H (1.3-7.7) k/uL Chloride 108 H (98-107) mmol/L BUN 35 H (7-17) mg/dL Glucose 112 H (74-99) mg/dL POC Glucose (mg/dL) (75-99) mg/dL AST 45 H (14-36) U/L Lactate Dehydrogenase 929 H (313-618) U/L Creatine Kinase 232 H (30-135) U/L Total Protein 6.1 L (6.3-8.2) g/dL Albumin 3.4 L (3.5-5.0) g/dL Microbiology - Last 24 Hours (Table) 08/01/19 18:15 Blood Culture - Preliminary Blood No Growth after 24 hours 08/01/19 12:30 Urine Culture - Final Urine,Voided Assessment and Plan Assessment: Acute hypercapnic respiratory failure secondary to narcotic overdose Acute metabolic encephalopathy likely due to above Diarrhea Elevated BUN Elevated CPK Secondary to narcotic overdose. Narcan drip discontinued. Plans: Resolved. At baseline. On room air. Resolving. Multifactorial from CO2 narcosis, polypharmacy and multiple psychotropic medications. Questionable seizure-like activity. EEG shows no lip to form discharges but abnormal. Urine culture negative. Plans: Continue Keppra IV. Follow neurology recommendations. Discontinue Rocephin as patient does not seem to have UTI. Will restart some of her chronic pain medication on a step by step basis. C. diff negative. Plans: Conservative management. BUN 35 improved from BUN 45 on admission. Plans: Lactated Ringer's at 40 mL per hour. Avoid nephrotoxins. Encourage hydration by mouth. CPK 232. Plans: IVF as above. Encourage hydration by mouth. [Patient admitted respiratory failure secondary to narcotic overdose. Respiratory failure has resolved. Patient continues to complain of fogginess and there is questionable seizures. Neurology recommendations pending. Patient is pending clinical improvement. Likely DC in 1-2 days.]
[2019-08-03 16:42] LABS: Glucose,Whole Blood 79 mg/dL (75-99)
[2019-08-03] MEDS: LACTATED RINGERS 1,000 ML IV SCH (17:06)
[2019-08-03] MEDS: CARVEDILOL 12.5 MG TAB PO SCH (17:08)
[2019-08-03] MEDS: HYDROcodone/APAP 10-325MG 1 EACH TAB PO PRN ×2 (17:08→22:57)
--- NOTE | 2019-08-03 18:11 | P.CNNES ---
History of Present Illness Consult date: 08/03/19 Requesting physician: Tacos Phillips Reason for Consult: Sulcal effacement, bilateral jerking movements. Concern for new onset seiz History of Present Illness: Patient is a 54-year-old female admitted on 08/01/2019 for jerking movements over the past 3-4 days. Patient thought it would be a medication reaction although she denies taking any new medications over the past several weeks. Patient is on [place], morphine, Lyrica for chronic pain issues. There were no focal numbness or tingling or new onset weakness. Patient had an episode of renal failure when she was treated at outside hospital. Patient tells me that her daughter brought her to the hospital because she was feeling cold, and her left side of her body was shaking. When she came to the ER, she was confused, kept on asking for a paper in the pencil. She thinks she may have bumped her head at home, while trying to sit on the toilet. She couldn't think name of her or her daughters. She denies any focal symptoms otherwise. Patient underwent Computed tomography scan of head on 08/01/2019 showed diffuse right-sided sulcal effacement suggesting some degree of brain swelling. Uncertain as to the etiology of this. I reviewed computed tomography scan of the head, appears artifactual. Repeat computed tomography scan of head on 08/2019 was normal. Small retention cyst or polyp, left maxillary antrum. EKG shows normal sinus rhythm. Chest x-ray with mild atelectasis at the lung bases. No heart failure. EKG shows normal sinus rhythm, low voltage QRS. Carotid Doppler showed antegrade flow in the vertebral arteries. No significant stenosis on either ICA. Patient had an EEG performed yesterday, revealed diffuse theta range slowing and runs of frontally predominant delta range slowing. These findings are not epileptiform in nature. These findings indicate moderate diffuse cerebral dysfunction which may be due to medication effect or encephalopathy. No seizures or any epileptiform activity were seen. More recent chest x-ray from today showed improved aeration of the lungs with that resolved right basilar atelectasis. No acute cardiopulmonary process. Patient's CBC WBC 10.9 hemoglobin 11.3. Platelets are normal. PT/PTT normal. Patient's electrolytes are normal, BUN 35, creatinine 0.94. AST 45, mildly elevated with normal ALT 30. CPK 232. Urine drug screen positive for opiates. UA showed large amount of leukocyte Estrace, 146 WBCs. Few bacteria. Urine culture so far negative. C. difficile negative. Review of Systems Chronic back pain. Left leg weakness from previous back surgery. Denies headache, double vision or loss of vision. Denies chest pain shortness of breath wheezing or cough. Denies abdominal pain nausea vomiting diarrhea. Past Medical History Past Medical History: Cancer, Hyperlipidemia, Hypertension, Thyroid Disorder Additional Past Medical History / Comment(s): chronic back pain, skin CA, CRF, MARYELLEN History of Any Multi-Drug Resistant Organisms: None Reported Past Surgical History: Orthopedic Surgery Past Anesthesia/Blood Transfusion Reactions: No Reported Reaction Smoking Status: Former smoker Medications and Allergies Home Medications Medication Instructions Recorded Confirmed Type Albuterol Inhaler [Ventolin Hfa 2 puff INHALATION RT-QID PRN 08/01/19 08/01/19 History Inhaler] Aspirin EC [Ecotrin Low Dose] 81 mg PO DAILY 08/01/19 08/01/19 History Atorvastatin [Lipitor] 80 mg PO HS 08/01/19 08/01/19 History Baclofen [Lioresal] 10 mg PO DAILY 08/01/19 08/01/19 History Carvedilol [Coreg] 12.5 mg PO BID 08/01/19 08/01/19 History DULoxetine HCL [Cymbalta] 60 mg PO DAILY 08/01/19 08/01/19 History Fluticasone Propion/Salmeterol 1 puff INHALATION RT-BID 08/01/19 08/01/19 History [Wixela 250-50 Inhub] HYDROcodone/APAP 10-325MG [[place] 1 tab PO TID PRN 08/01/19 08/01/19 History 10-325] Lisinopril-Hctz 20-12.5 mg 1 tab PO DAILY 08/01/19 08/01/19 History [Zestoretic 20-12.5] Morphine Sulfate [Ms Contin] 30 mg PO Q12H 08/01/19 08/01/19 History Pregabalin [Lyrica] 200 mg PO TID 08/01/19 08/01/19 History Allergies Allergy/AdvReac Type Severity Reaction Status Date / Time UNKNOWN BLOOD PRESSURE AdvReac KIDNEYS Uncoded 08/01/19 13:00 MEDICATION SHUT DOWN Physical Examination - Vital Signs Vital Signs: Vital Signs Temp Pulse Resp BP Pulse Ox 08/03/19 12:00 99.0 F 70 12 130/73 96 08/03/19 08:00 98.6 F 98 15 142/72 94 L 08/03/19 07:00 75 14 129/82 97 08/03/19 06:00 72 16 129/80 97 08/03/19 05:00 73 16 127/77 96 08/03/19 04:00 99.0 F 80 16 130/83 98 08/03/19 03:00 79 18 125/80 99 08/03/19 02:00 74 15 127/72 99 08/03/19 01:00 75 15 136/76 98 08/03/19 00:09 81 19 136/76 98 08/03/19 00:00 98.6 F 78 15 124/79 98 08/02/19 23:30 78 15 124/79 98 08/02/19 23:00 71 14 126/76 98 08/02/19 22:30 81 16 126/76 99 08/02/19 22:00 76 15 128/83 99 08/02/19 21:30 87 16 128/83 100 08/02/19 21:00 96 11 L 134/76 99 08/02/19 20:30 99 24 99 08/02/19 20:00 98.6 F 92 24 134/76 95 08/02/19 19:34 94 08/02/19 19:30 98 12 08/02/19 19:22 95 08/02/19 19:00 84 15 126/80 94 L 08/02/19 18:00 80 12 133/79 100 08/02/19 17:00 99 18 131/77 98 Intake and Output 08/03/19 08/03/19 08/03/19 06:59 14:59 22:59 Intake Total 360 680 Output Total 475 630 Balance -115 50 Intake: IV 360 380 Lactated Ringers 1,000 ml 360 280 @ 40 mls/hr IV .Q24H [facility] Rx#:[id number] levETIRAcetam IV 1,000 mg 100 In Saline 1 100ml.bag @ 400 mls/hr IVPB Q12HR [facility] Rx#:[id number] Oral 300 Output: Urine 475 630 Other: Voiding Method Indwelling Catheter Indwelling Catheter # Bowel Movements 1 1 Weight 86.5 kg On examination patient is a middle aged female, in no distress. Patient is alert and awake. Appears slightly delirious. Patient knows that she is in [facility] [place] in [facility] and that is at its July 2019 and name of the current president. Knows her date of . Speech and language functions are normal. Attention, concentration and knowledge is adequate. Cranial nerve examination pupils are round and reactive to light, v isual tyler are full. Face is symmetric and tongue protrudes the midline. Muscle strength testing there is no pronator drift and the strength is normal in arms and legs except left leg, which is weak distally from previous back surgery. Reflexes symmetric and plantars downgoing. Tone and bulk of muscles normal. There is no tremors of outstretched hands. No myoclonus. No carotid bruit, S1 and S2 audible. Peripheral pulses present. Results - Laboratory Findings CBC and BMP: 08/03/19 04:46 08/03/19 04:46 Abnormal Lab Findings: Abnormal Labs 08/01/19 08/01/19 08/01/19 12:00 12:00 12:00 WBC Hgb Neutrophils # 8.1 H Lymphocytes # ABG pH ABG pCO2 ABG pO2 ABG Total CO2 ABG O2 Saturation VBG pH VBG pCO2 Sodium 135 L Chloride Carbon Dioxide BUN 45 H Creatinine 1.83 H Glucose 121 H POC Glucose (mg/dL) Plasma Lactic Acid Darian 0.6 L AST 65 H ALT 41 H Lactate Dehydrogenase Creatine Kinase Total Protein Albumin Urine Appearance Urine Blood Ur Leukocyte Esterase Urine WBC Urine WBC Clumps Amorphous Sediment Urine Bacteria Hyaline Casts Urine Mucus Urine Opiates Screen 08/01/19 08/01/19 08/01/19 12:00 16:51 19:54 WBC Hgb Neutrophils # Lymphocytes # ABG pH ABG pCO2 ABG pO2 ABG Total CO2 ABG O2 Saturation VBG pH 7.24 L VBG pCO2 67 H Sodium Chloride Carbon Dioxide BUN Creatinine Glucose POC Glucose (mg/dL) 100 H Plasma Lactic Acid Darian AST ALT Lactate Dehydrogenase Creatine Kinase Total Protein Albumin Urine Appearance Urine Blood Trace H Ur Leukocyte Esterase Large H Urine WBC 15 H Urine WBC Clumps Amorphous Sediment Urine Bacteria Rare H Hyaline Casts 4 H Urine Mucus Rare H Urine Opiates Screen Detected H 08/01/19 08/01/19 08/01/19 20:48 20:55 22:19 WBC Hgb Neutrophils # Lymphocytes # ABG pH 7.30 L ABG pCO2 50 H ABG pO2 246 H ABG Total CO2 26 H ABG O2 Saturation 99.4 H VBG pH VBG pCO2 Sodium Chloride Carbon Dioxide BUN Creatinine Glucose POC Glucose (mg/dL) 117 H Plasma Lactic Acid Darian AST ALT Lactate Dehydrogenase Creatine Kinase Total Protein Albumin Urine Appearance Cloudy H Urine Blood Ur Leukocyte Esterase Large H Urine WBC 146 H Urine WBC Clumps Many H Amorphous Sediment Rare H Urine Bacteria Few H Hyaline Casts Urine Mucus Rare H Urine Opiates Screen 08/02/19 08/02/19 08/02/19 00:05 04:25 04:34 WBC Hgb Neutrophils # Lymphocytes # 0.8 L ABG pH ABG pCO2 ABG pO2 ABG Total CO2 ABG O2 Saturation VBG pH VBG pCO2 Sodium Chloride Carbon Dioxide BUN Creatinine Glucose POC Glucose (mg/dL) 136 H 126 H Plasma Lactic Acid Darian AST ALT Lactate Dehydrogenase Creatine Kinase Total Protein Albumin Urine Appearance Urine Blood Ur Leukocyte Esterase Urine WBC Urine WBC Clumps Amorphous Sediment Urine Bacteria Hyaline Casts Urine Mucus Urine Opiates Screen 08/02/19 08/02/19 08/02/19 04:34 07:38 08:33 WBC Hgb Neutrophils # Lymphocytes # ABG pH 7.34 L ABG pCO2 ABG pO2 184 H ABG Total CO2 26 H ABG O2 Saturation 99.3 H VBG pH VBG pCO2 Sodium Chloride 110 H Carbon Dioxide 21 L BUN 33 H Creatinine 1.15 H Glucose 143 H POC Glucose (mg/dL) 129 H Plasma Lactic Acid Darian AST ALT Lactate Dehydrogenase Creatine Kinase Total Protein Albumin Urine Appearance Urine Blood Ur Leukocyte Esterase Urine WBC Urine WBC Clumps Amorphous Sediment Urine Bacteria Hyaline Casts Urine Mucus Urine Opiates Screen 08/02/19 08/02/19 08/02/19 12:05 15:43 20:24 WBC Hgb Neutrophils # Lymphocytes # ABG pH ABG pCO2 ABG pO2 ABG Total CO2 ABG O2 Saturation VBG pH VBG pCO2 Sodium Chloride Carbon Dioxide BUN Creatinine Glucose POC Glucose (mg/dL) 123 H 150 H 113 H Plasma Lactic Acid Darian AST ALT Lactate Dehydrogenase Creatine Kinase Total Protein Albumin Urine Appearance Urine Blood Ur Leukocyte Esterase Urine WBC Urine WBC Clumps Amorphous Sediment Urine Bacteria Hyaline Casts Urine Mucus Urine Opiates Screen 08/02/19 08/03/19 08/03/19 23:42 03:48 04:46 WBC 10.9 H Hgb 11.3 L Neutrophils # 8.8 H Lymphocytes # ABG pH ABG pCO2 ABG pO2 ABG Total CO2 ABG O2 Saturation VBG pH VBG pCO2 Sodium Chloride Carbon Dioxide BUN Creatinine Glucose POC Glucose (mg/dL) 142 H 119 H Plasma Lactic Acid Darian AST ALT Lactate Dehydrogenase Creatine Kinase Total Protein Albumin Urine Appearance Urine Blood Ur Leukocyte Esterase Urine WBC Urine WBC Clumps Amorphous Sediment Urine Bacteria Hyaline Casts Urine Mucus Urine Opiates Screen 08/03/19 04:46 WBC Hgb Neutrophils # Lymphocytes # ABG pH ABG pCO2 ABG pO2 ABG Total CO2 ABG O2 Saturation VBG pH VBG pCO2 Sodium Chloride 108 H Carbon Dioxide BUN 35 H Creatinine Glucose 112 H POC Glucose (mg/dL) Plasma Lactic Acid Darian AST 45 H ALT Lactate Dehydrogenase 929 H Creatine Kinase 232 H Total Protein 6.1 L Albumin 3.4 L Urine Appearance Urine Blood Ur Leukocyte Esterase Urine WBC Urine WBC Clumps Amorphous Sediment Urine Bacteria Hyaline Casts Urine Mucus Urine Opiates Screen Assessment and Plan Assessment: * 54-year-old female admitted with altered mental status, some tremors. Likely delirium from medication side effect, opiates, mild renal insufficiency, possible UTI. Current examination nonfocal. Although her CPK slightly elevated, but NMS less likely with normal temperature. * Elevated liver enzymes, likely due to excessive pain medications, now improving. * Chronic low back pain. History of back surgery. Plan: * Patient probably had delirium. Probably not seizures. * We'll slowly wean off Keppra. We will decrease Keppra 500 mg twice a day for 2 days, then 500 mg once daily for 1 day and then stop. * Suggest limit amount of opiates. * Follow liver functions. * We will check ammonia, TSH, B12, folate.
[2019-08-03 20:42] LABS: Glucose,Whole Blood 118 mg/dL (75-99)
[2019-08-03] MEDS: ATORVASTATIN 80 MG TAB PO SCH (21:13)
[2019-08-03] MEDS: PREGABALIN 100 MG CAP PO SCH (23:00)
[2019-08-04] MEDS: INSULIN ASPART (NovoLOG) 100 UNIT/ML VIAL SQ SCH ×2 (06:34→10:58)
[2019-08-04 06:35] LABS: Glucose,Whole Blood 76 mg/dL (75-99)
[2019-08-04] MEDS: CARVEDILOL 12.5 MG TAB PO SCH (06:35)
[2019-08-04 07:08] LABS: T4, Free (Free Thyroxine) 1.63 ng/dL (0.78-2.19)
[2019-08-04] MEDS: SYMBICORT 80-4.5 MCG INHALER INHALATION SCH (07:09)
[2019-08-04] MEDS ORDERED: DULoxetine HCL 60 MG CAPSULE.DR PO SCH (09:00)
[2019-08-04] MEDS ORDERED: levETIRAcetam 500 MG TAB PO SCH (09:00)
[2019-08-04] MEDS ORDERED: LISINOPRIL-HCTZ 20-12.5 MG 1 EACH TAB PO SCH (09:00)
[2019-08-04] MEDS: PREGABALIN 100 MG CAP PO SCH (09:13)
[2019-08-04] MEDS: ASPIRIN 81 MG PO SCH (09:13)
[2019-08-04] MEDS: ENOXAPARIN 40 MG/0.4 ML SYRINGE SQ SCH (09:14)
[2019-08-04] MEDS: PANTOPRAZOLE 40 MG/10 ML VIAL IVP SCH (09:14)
[2019-08-04] MEDS: HYDROcodone/APAP 10-325MG 1 EACH TAB PO PRN (09:16)
[2019-08-04 10:24] VITALS: TEMP 99.4
[2019-08-04 11:34] LABS: Folate, Serum >24.0 ng/mL
--- NOTE | 2019-08-04 13:17 | P.PN ---
Subjective Progress Note Date: 08/04/19 Principal diagnosis: Altered mental status, acute metabolic encephalopathy, acute hypercapnic respiratory failure and CO2 narcosis 54-year-old female patient, who has had issues with chronic pain and the patient has a pain stimulator in addition to that she receives a combination of [place], morphine and medical for chronic pain. She initially presented herself to our ED with jerking movements over the past few days. She saw this was a medication reaction. She denied any recent change in her medication regimen. She denies having any focal weakness. No loss of consciousness. No reported fever or chills. No shortness of breath. No headaches. No nausea. No vomiting. The initial blood work showed a normal CBC, electrolytes shows a mean of 45 with a creatinine of 1.8 and there was some limited elevation of the AST and ALT were the levels were 65 and 41 respectively, with the rest of the electrolytes were essentially being within normal limits. The UA showed 15 WBCs, 3 RBCs, trace blood and the urine drug screen was positive for opiates and the Tylenol level was 10.6 without any alcohol. This computed tomography scan of the brain showed diffuse right-sided sulcal effacement suggesting some degree of brain swelling without any definite focal lesion or midline shift. No evidence of any intracranial hemorrhage. The chest x-ray showed some limited atelectatic changes in the lung bases, otherwise no other abnormalities seen. EKG was consistent with a normal sinus rhythm. Reviewing the home medication, the patient is on MS Contin 30 mg by mouth twice a day, [place] 10/325 one tablet 3 times a day and baclofen 10 mg by mouth daily in addition to Lyrica 200 mg by mouth daily. Rest of the medication with the blood pressure where the patient takes lisinopril/hydrochlorothiazide and Coreg and the patient is on Lipitor for hyperlipidemia and she takes Wixela inhub for COPD/asthma. She also utilizes Ventolin rescue inhaler. Her initial pulse ox on 2 L of oxygen was 98% Based on this CAT scan findings, the case was discussed with the stroke neuro logist, Dr. Perez , recommended MRI of the brain with and without contrast. The possibilities that was entertained were brain mass versus CVA along with focal seizures. He also recommended starting patient on aspirin and Keppra. We accepted the patient based on the fact that we're unable to transfer this patient due to coronavirus of pandemic. Unable to do the MRI at this point in time as the patient has a implanted device/nerve stimulator that may not be compatible with MRI imaging. Based on all this, the patient was supposed to get admitted to the medical floor. While in the emergency, the patient became less responsive, obtunded and diminished level of consciousness along with increased snoring. The patient was given 2 doses of Narcan .She's given Narcan and she returns normal respirations, she is awake and arousable to voice and has normalized vitals and respirations. She does report a history of sleep apnea she is placed on CPAP at night. The VBG showed a pH of 7.24 with a pCO2 of 67. Upon arrival to the ICU, the patient was lethargic and somnolentand she was a Narcan and 0.6 mg per hour continuous drip and the patient was on BiPAP at a pressure of 12/5 cm of water and FiO2 of 50%. Reevaluated today on 08/03/19, patient remains in the ICU, she is very awake, as ymptomatic, denies any cough wheezing or shortness of breath. Patient is on room air, and her O2 saturation is 94%. Chest x-ray showed mostly bibasilar atelectasis. Patient is in sinus rhythm, hemodynamically stable, respiratory rate is 14. Temp is 98.6. Electrolytes are normal renal profile is basically normal CBC is normal LDH is elevated at 929 C-reactive protein is 5.9 and AST is 45. Otherwise the rest of the labs are basically unremarkable. Considering her diarrhea, patient had a C. difficile screening done, and it came back negative. Covid 19 testing is pending. On 08/04/2019 patient seen in follow-up in the intensive care unit. She is awake and alert and oriented 3, she is on room air and satting 100%, vital signs are stable, hemodynamically patient is stable, lung sounds are clear to auscultation, no acute events overnight. No fever or chills, blood and urine cultures are negative, ammonia level came back at less than 9, d-dimer is within normal limits at 0.51, white blood cell count is 10.9, hemoglobin is 11.3, sodium is 1:30, potassium is 4.6, chloride is 108, CO2 is 24, B1 is 35 creatinine 0.94, ferritin is within normal limits, liver enzymes are improving, LDH 929, CKs 232, CRP was within normal limits at 5.9. On admission patient's urinalysis was positive for white blood cells, white blood cells in clumps, and large amount of leuks. However the cultures were negative, patient has been asymptomatic and she's been afebrile. She was evaluated by neurology and her altered mentation was thought to be encephalopathy, delirium related to medication side effects, opiates, and mild renal insufficiency. Her mentation has certainly improved since admission. Patient can be moved out of intensive care unit today to general medical floor. Objective - Vital Signs Vital signs: Vital Signs Temp 99.4 F 08/04/19 10:23 Pulse 65 08/04/19 10:23 Resp 15 08/04/19 10:23 BP 141/90 08/04/19 10:23 Pulse Ox 100 08/04/19 10:23 Intake & Output 08/03/19 08/04/19 08/04/19 18:59 06:59 18:59 Intake Total 680 1380 180 Output Total 632 40 Balance 48 1340 180 Intake: IV 380 780 Lactated Ringers 1,000 ml 280 680 @ 40 mls/hr IV .Q24H [facility] Rx#:[id number] levETIRAcetam IV 1,000 mg 100 100 In Saline 1 100ml.bag @ 400 mls/hr IVPB Q12HR [facility] Rx#:[id number] Oral 300 600 180 Output: Urine 632 40 Other: Voiding Method Indwelling Catheter Toilet # Voids 1 # Bowel Movements 2 3 - Exam GENERAL EXAM: Alert, very pleasant, 54-year-old white female, with room air pulse ox of 100% comfortable in no apparent distress. HEAD: Normocephalic/atraumatic. EYES: Normal reaction of pupils, equal size. Conjunctiva pink, sclera white. NOSE: Clear with pink turbinates. THROAT: No erythema or exudates. NECK: No masses, no JVD, no thyroid enlargement, no adenopathy. CHEST: No chest wall deformity. Symmetrical expansion. LUNGS: Equal air entry with no crackles, wheeze, rhonchi or dullness. CVS: Regular rate and rhythm, normal S1 and S2, no gallops, no murmurs, no rubs ABDOMEN: Soft, nontender. No hepatosplenomegaly, normal bowel sounds, no guar ding or rigidity. EXTREMITIES: No clubbing, no edema, no cyanosis, 2+ pulses and upper and lower extremities. MUSCULOSKELETAL: Muscle strength and tone normal. SPINE: No scoliosis or deformity SKIN: No rashes CENTRAL NERVOUS SYSTEM: Alert and oriented -3. No focal deficits, tone is normal in all 4 extremities. PSYCHIATRIC: Alert and oriented -3. Appropriate affect. Intact judgment and insight. - Labs CBC & Chem 7: 08/03/19 04:46 08/03/19 04:46 Labs: Abnormal Lab Results - Last 24 Hours (Table) 08/03/19 08/04/19 Range/Units 20:41 04:10 POC Glucose (mg/dL) 118 H (75-99) mg/dL TSH 0.054 L (0.465-4.680) mIU/L Microbiology - Last 24 Hours (Table) 08/01/19 18:15 Blood Culture - Preliminary Blood No Growth after 48 hours Assessment and Plan Plan: Assessment: #1. Acute hypercapnic respiratory failure, resolved, patient did require BiPAP on presentation, she was on a Narcan drip, her breast or status had improved, patient is currently on room air, and level of consciousness is back to normal, mentation is back to a #2. Acute metabolic encephalopathy/CO2 narcosis, improved #3. Chronic kidney disease stage III #4. Chronic anxiety/depression #5. History of underlying COPD, asymptomatic and stable presently #6. History of benign essential hypertension #7. History of dyslipidemia #8. History of chronic back pain #9. Hypotension on presentation, resolved with IV hydration, was probably hypovolemic in nature. Plan: Clinically stable, mentation is back to baseline, level of consciousness is a wake and alert, calm, vital signs are stable, no fever no chills. Patient can be transferred to general medical floor from the intensive care unit, increase activity as tolerated. He I performed a history & physical examination of the patient and discussed their management with my nurse practitioner, Ellie aCstro. I reviewed the nurse practitioner's note and agree with the documented findings and plan of care. Lung sounds are positive for clear breath sounds. The findings and the impress ion was discussed with the patient. I attest to the documentation by the nurse practitioner. Time with Patient: Less than 30
--- NOTE | 2019-08-04 13:51 | P.PN ---
Subjective Progress Note Date: 08/04/19 Principal diagnosis: Altered mental status Patient was seen and examined. No acute events overnight. Patient reports no diarrhea today. Pain is better controlled after starting pain medications. She denies any chest pain, shortness of breath or palpitations. No nausea or vom iting. No fever or chills. No slurred speech. No numbness, weakness and tingling of the extremities. Patient reports feeling at baseline. Objective - Vital Signs Vital signs: Vital Signs Temp 99.4 F 08/04/19 10:23 Pulse 65 08/04/19 10:23 Resp 15 08/04/19 10:23 BP 141/90 08/04/19 10:23 Pulse Ox 100 08/04/19 10:23 Intake & Output 08/03/19 08/04/19 08/04/19 18:59 06:59 18:59 Intake Total 680 1380 180 Output Total 632 40 Balance 48 1340 180 Intake: IV 380 780 Lactated Ringers 1,000 ml 280 680 @ 40 mls/hr IV .Q24H [facility] Rx#:[id number] levETIRAcetam IV 1,000 mg 100 100 In Saline 1 100ml.bag @ 400 mls/hr IVPB Q12HR [facility] Rx#:[id number] Oral 300 600 180 Output: Urine 632 40 Other: Voiding Method Indwelling Catheter Toilet # Voids 1 # Bowel Movements 2 3 - Exam General: [non toxic], [no distress], [appears at stated age] Derm: [warm], [dry] Head: [atraumatic], [normocephalic], [symmetric] Eyes: [EOMI], [no lid lag], [anicteric sclera] Mouth: [no lip lesion], [mucus membranes moist] Cardiovascular: [S1S2 reg], [no murmur], [positive DP pulse bilateral], Lungs: [CTA bilateral], [no rhonchi, no rales] , [no accessory muscle use] Abdominal: [soft], [ nontender to palpation], [no guarding], [no appreciable organomegaly] Ext: [no gross muscle atrophy], [no edema], [no contractures] Neuro: [no focal neuro deficits] Psych: [Alert], [oriented], [appropriate affect] - Labs CBC & Chem 7: 08/03/19 04:46 08/03/19 04:46 Labs: Abnormal Lab Results - Last 24 Hours (Table) 08/03/19 08/04/19 Range/Units 20:41 04:10 POC Glucose (mg/dL) 118 H (75-99) mg/dL TSH 0.054 L (0.465-4.680) mIU/L Microbiology - Last 24 Hours (Table) 08/01/19 18:15 Blood Culture - Preliminary Blood No Growth after 48 hours Assessment and Plan Assessment: Acute hypercapnic respiratory failure secondary to narcotic overdose Acute metabolic encephalopathy likely due to above Diarrhea Elevated BUN Elevated CPK Secondary to narcotic overdose. Narcan drip discontinued. Plans: Resolved. At baseline. On room air. Resolving. Multifactorial from CO2 narcosis, polypharmacy and multiple psychotropic medications. Questionable seizure-like activity. EEG shows no lip to form discharges but abnormal. Urine culture negative. Plans: Titarate Keppra by mouth for 2 days as per Neurology. Follow neurology recommendations. Discontinue Rocephin as patient does not seem to have UTI. Will restart some of her chronic pain medication on a step by step basis. C. diff negative. Plans: Conservative management. BUN 35 improved from BUN 45 on admission. Plans: Lactated Ringer's at 40 mL per hour. Avoid nephrotoxins. Encourage hydration by mouth. CPK 232. Plans: IVF as above. Encourage hydration by mouth. [Patient admitted respiratory failure secondary to narcotic overdose. Re spiratory failure has resolved. Discussed with Dr. Sheth, patient is cleared for discharge. ]
[2019-08-04 13:56] VITALS: BP 133/82; PULSE 85; RESP 14
--- NOTE | 2019-08-04 14:17 | P.PN ---
Subjective Progress Note Date: 08/04/19 Patient is feeling much better. He offers no new complaints. No headache. Fully oriented. Objective - Vital Signs Vital signs: Vital Signs Temp 99.4 F 08/04/19 13:55 Pulse 85 08/04/19 13:55 Resp 14 08/04/19 13:55 BP 133/82 08/04/19 13:55 Pulse Ox 97 08/04/19 13:55 Intake & Output 08/03/19 08/04/19 08/04/19 18:59 06:59 18:59 Intake Total 680 1380 180 Output Total 632 40 Balance 48 1340 180 Intake: IV 380 780 Lactated Ringers 1,000 ml 280 680 @ 40 mls/hr IV .Q24H JENNIFER Rx#:[id number] levETIRAcetam IV 1,000 mg 100 100 In Saline 1 100ml.bag @ 400 mls/hr IVPB Q12HR JENNIFER Rx#:[id number] Oral 300 600 180 Output: Urine 632 40 Other: Voiding Method Indwelling Catheter Toilet # Voids 1 # Bowel Movements 2 3 - Exam Patient's mentation is completely normal. She is fully oriented. Speech and language functions cranial nerves and strength is normal in the arms and legs except left leg which is weak from previous back problem. - Labs CBC & Chem 7: 08/03/19 04:46 08/03/19 04:46 Labs: Abnormal Lab Results - Last 24 Hours (Table) 08/03/19 08/04/19 Range/Units 20:41 04:10 POC Glucose (mg/dL) 118 H (75-99) mg/dL TSH 0.054 L (0.465-4.680) mIU/L Microbiology - Last 24 Hours (Table) 08/01/19 18:15 Blood Culture - Preliminary Blood No Growth after 48 hours Assessment and Plan Assessment: * 54-year-old female admitted with altered mental status, some tremors. Likely delirium from medication side effect, opiates, mild renal insufficiency, possible UTI. Current examination nonfocal. Although her CPK slightly elevated, but NMS less likely with normal temperature. * Elevated liver enzymes, likely due to excessive pain medications, now improving. * Chronic low back pain. History of back surgery. Plan: * Patient probably had delirium, now seems to be resolved. Probably not seizures. * We'll slowly wean off Keppra. We will decrease Keppra 500 mg twice a day for 2 days, then 500 mg once daily for 1 day and then stop. * Suggest limit amount of opiates. * Follow liver functions. * Ammonia <9, TSH 0.054 with normal free T4. This abnormal TFTs to be addressed by PCP * B12 normal at 545 and folate > 24.0. * Neurologically clear for discharge.
[2019-08-05] MEDS ORDERED: PANTOPRAZOLE 40 MG TABLET PO SCH (07:30)
--- NOTE | 2019-08-06 09:15 | CDI ---
Documentation Clarification Form Date: 08/06/2019 09:02:56 AM From: Katelynn BynumRamirezANA MARIA, CCDS Admit Date: 08/01/2019 02:46:00 PM Patient Name: Joyce Yanez Visit Number: [id number] Discharge Date: 08/04/2019 03:15:00 PM ATTENTION: The Clinical Documentation Specialists (CDI) and [facility] Coding Staff appreciate your assistance in clarifying documentation. Please respond to the clarification below the line at the bottom and electronically sign. The CDI & [facility] Coding staff will review the response and follow-up if needed. Please note: Queries are made part of the Legal Health Record. If you have any questions, please contact the author of this message via ITS. Dr. Wilbur Donald: Per the 08/01 Attending Progress Note: "Apparently, several family members were sick with fevers and URI symptoms and she is being tested for COVID-19." Per the 08/02 & 08/03 Attending Progress Notes: "COVID 19 testing is pending. Per the 08/01 Serology results: Coronavirus: Not detected. Patient history/risk factors: Hypertension, Hyperlipidemia, Hypothyroid, MARYELLEN, Chronic back pain. Current Smoker. Clinical Indicators: Patient presented to the ED on 07/31 complaining of "jerking movements", became unresponsive in the ED requiring Narcan, placed on BiPAP. Diagnosed with Acute hypercapnic respiratory failure, Acute metabolic encephalopathy, Hypotension, TESFAYE & Possible UTI. Possible delirium from medication side effects (opiates). VSS, became hypotension in ED BP 95/41. Labs 07/31: Neut 8.1^. ABGs 07/31: pH 7.30*, pCO2 50^, pO2 246^, Total CO2 26^. VBG pH 7.24*, pCO2 67^. Toxicology: Opiates detected, Serum Alcohol <10. Serology: COVID negative on 08/01 Treatment: IV fluid bolus 500 mls@999/hr, IV Keppra, IV Narcan, IV Rocephin, INH Albuterol, IV Decadron. In order to capture the severity of condition, please clarify if the above treatment/clinical indicators signify: COVID-19 Suspected COVID-19 ruled out Other, please specify Unable to determine (Last Form Revision: June 2019) ruled out MTDD
== END 2019-08-04 15:15 | disposition home or self-care (01) | DRG 917 ==
LOC: EC 11:36 → 3SCARD 14:46 → 2SICU 19:03 → 4SSUR 08-04 10:12
PROVIDERS: ADMIT Internal Medicine; ATTEND Internal Medicine
PROC: 5A09357 Assistance with Respiratory Ventilation, Less than 24 Consecutive Hours, Continuous Positive Airway Pressure (ICD-10-PCS; principal; 2019-08-01)
DX: T40.601A Poisoning by unspecified narcotics, accidental (unintentional), initial encounter (principal); J96.02 Acute respiratory failure with hypercapnia; G92 Toxic encephalopathy; G93.6 Cerebral edema; J98.11 Atelectasis; E78.5 Hyperlipidemia, unspecified; F17.210 Nicotine dependence, cigarettes, uncomplicated; F32.9 Major depressive disorder, single episode, unspecified; F41.9 Anxiety disorder, unspecified; G89.29 Other chronic pain; G93.89 Other specified disorders of brain; I12.9 Hypertensive chronic kidney disease with stage 1 through stage 4 chronic kidney disease, or unspecified chronic kidney disease; J44.9 Chronic obstructive pulmonary disease, unspecified; N18.3 Chronic kidney disease, stage 3 (moderate); Z79.82 Long term (current) use of aspirin; Z79.899 Other long term (current) drug therapy; I95.2 Hypotension due to drugs; M54.9 Dorsalgia, unspecified; E03.9 Hypothyroidism, unspecified; Z88.8 Allergy status to other drugs, medicaments and biological substances; Z20.828 Contact with and (suspected) exposure to other viral communicable diseases
CPT/HCPCS: 36415; 36600; 70450; 71045; 80048; 80053; 80306; 80320; 80329; 81001; 82140; 82550; 82607; 82728; 82746; 82803; 82805; 83520; 83605; 83615; 84439; 84443; 85025; 85379; 85610; 85730; 86140; 87040; 87086; 87324; 87635; 93005; 93880; 94640; 94660; 95819; 96361; 96365; 96375; 99285